=== PATIENT | male | born 1940 | race Caucasian/White ===

== ENCOUNTER 2016-04-29 07:43 | Outpatient (CLI) | payer MEDICARE, OTHER | END 2016-04-29 07:44 | disposition home or self-care (01) | DX: Z00.00 Encounter for general adult medical examination without abnormal findings (principal); E78.5 Hyperlipidemia, unspecified; Z12.5 Encounter for screening for malignant neoplasm of prostate; I10 Essential (primary) hypertension | CPT/HCPCS: 36415; 80053; 80061; 81001; 85025; G0103 ==

== ENCOUNTER 2016-05-07 16:02 | Outpatient (CLI) | payer MEDICARE, OTHER | END 2016-05-07 16:03 | disposition home or self-care (01) | DX: D64.9 Anemia, unspecified (principal) ==

== ENCOUNTER 2017-04-09 07:37 | Outpatient (CLI) | payer MEDICARE, OTHER ==
[2017-04-09 19:27] LABS: ALBUMIN/GLOBULIN RATIO 1.2 (1.0-2.2); BILIRUBIN,TOTAL 0.7 mg/dL (0.2-1.0); BUN - BLOOD UREA NITROGEN 17 mg/dL (6-20); CALCIUM 8.9 mg/dL (8.5-10.3); CARBON DIOXIDE - CO2 28 mmol/L (21-32); CHLORIDE 105 mmol/L (101-111); CHOL/HDL RATIO 3.2 (<5.0); CHOLESTEROL 232 mg/dL; CREATININE 0.9 mg/dL (0.6-1.2); GFR - MDRD 82 (>89); GLUCOSE 88 mg/dL (70-100); HDL CHOLESTEROL 73 mg/dL; POTASSIUM 4.1 mmol/L (3.5-5.0); SODIUM 138 mmol/L (135-145); TOTAL PROTEIN 6.9 g/dL (6.7-8.2); TRIGLYCERIDES 57 mg/dL; VLDL CHOLESTEROL 11 mg/dL
[2017-04-09 19:47] LABS: BASOPHILS # (AUTO) 0.1 10^3/uL (0.0-0.1); EOSINOPHILS # (AUTO) 0.3 10^3/uL (0.0-0.7); EOSINOPHILS % (AUTO) 5.7 %; HCT - HEMATOCRIT 39.8 % (42.0-52.0); HGB - HEMOGLOBIN 13.4 g/dL (14.0-18.0); LYMPHOCYTES # (AUTO) 1.9 10^3/uL (1.5-3.5); LYMPHOCYTES % (AUTO) 36.9 %; MEAN CORPUSCULAR HEMOGLOBIN 31.7 pg (27.0-31.0); MEAN CORPUSCULAR HGB CONC 33.7 g/dL (32.0-36.0); MEAN CORPUSCULAR VOLUME 94.2 fL (80.0-94.0); MEAN PLATELET VOLUME 8.8 fL (7.4-11.4); MONOCYTES # (AUTO) 0.5 10^3/uL (0.0-1.0); MONOCYTES % (AUTO) 9.5 %; NEUTROPHILS # (AUTO) 2.5 10^3/uL (1.5-6.6); NEUTROPHILS % (AUTO) 46.9 %; RED BLOOD COUNT 4.22 10^6/uL (4.70-6.10); RED CELL DISTRIBUTION WIDTH 13.1 % (12.0-15.0); UNCORRECTED WHITE BLOOD COUNT 5.3 x10^3/uL; WHITE BLOOD COUNT 5.3 x10^3/uL (4.8-10.8)
== END 2017-04-09 07:38 | disposition home or self-care (01) ==
LOC: LAB.F 07:37
PROVIDERS: ATTEND Family Medicine
DX: I10 Essential (primary) hypertension (principal); E78.5 Hyperlipidemia, unspecified; Z12.5 Encounter for screening for malignant neoplasm of prostate; D64.9 Anemia, unspecified
CPT/HCPCS: 36415; 80053; 80061; 85025; G0103; 84153

== ENCOUNTER 2017-04-25 08:08 | Outpatient (CLI) | payer MEDICARE, OTHER | END 2017-04-25 08:09 | disposition home or self-care (01) | LOC: DI 08:08 | PROVIDERS: ATTEND Family Medicine | DX: I35.0 Nonrheumatic aortic (valve) stenosis (principal); I51.9 Heart disease, unspecified; I51.7 Cardiomegaly | CPT/HCPCS: 93306 ==

== ENCOUNTER 2018-04-02 07:25 | Outpatient (CLI) | payer MEDICARE, OTHER ==
[2018-04-02 11:59] LABS: EOSINOPHILS # (AUTO) 0.4 10^3/uL (0.0-0.7); EOSINOPHILS % (AUTO) 7.4 %; HGB - HEMOGLOBIN 13.2 g/dL (14.0-18.0); LYMPHOCYTES # (AUTO) 1.7 10^3/uL (1.5-3.5); LYMPHOCYTES % (AUTO) 35.7 %; MEAN CORPUSCULAR HEMOGLOBIN 32.7 pg (27.0-31.0); MEAN CORPUSCULAR HGB CONC 34.9 g/dL (32.0-36.0); MEAN CORPUSCULAR VOLUME 93.5 fL (80.0-94.0); MEAN PLATELET VOLUME 8.8 fL (7.4-11.4); MONOCYTES # (AUTO) 0.5 10^3/uL (0.0-1.0); MONOCYTES % (AUTO) 9.5 %; NEUTROPHILS # (AUTO) 2.3 10^3/uL (1.5-6.6); NEUTROPHILS % (AUTO) 46.4 %; PLT - PLATELET COUNT 173 10^3/uL (130-450); RED BLOOD COUNT 4.03 10^6/uL (4.70-6.10); RED CELL DISTRIBUTION WIDTH 12.9 % (12.0-15.0); WHITE BLOOD COUNT 4.9 x10^3/uL (4.8-10.8)
[2018-04-02 12:22] LABS: ALBUMIN 3.8 g/dL (3.2-5.5); ALBUMIN/GLOBULIN RATIO 1.3 (1.0-2.2); ALKALINE PHOSPHATASE 48 IU/L (42-121); ALT ALANINE AMINOTRANSFERASE 20 IU/L (10-60); AST ASPARTATE AMINOTRANSFERASE 22 IU/L (10-42); BILIRUBIN,TOTAL 0.9 mg/dL (0.2-1.0); BUN - BLOOD UREA NITROGEN 17 mg/dL (6-20); CALCIUM 8.9 mg/dL (8.5-10.3); CARBON DIOXIDE - CO2 28 mmol/L (21-32); CHLORIDE 103 mmol/L (101-111); CHOL/HDL RATIO 3.1 (<5.0); CHOLESTEROL 223 mg/dL; CREATININE 0.9 mg/dL (0.6-1.2); GFR - MDRD 81 (>89); GLUCOSE 90 mg/dL (70-100); HDL CHOLESTEROL 71 mg/dL; LDL CHOLESTEROL,CALCULATED 143 mg/dL; SODIUM 137 mmol/L (135-145); TOTAL PROTEIN 6.8 g/dL (6.7-8.2); VLDL CHOLESTEROL 9 mg/dL
== END 2018-04-02 07:26 | disposition home or self-care (01) ==
LOC: LAB.F 07:25
PROVIDERS: ATTEND Registered Nurse
DX: N40.1 Benign prostatic hyperplasia with lower urinary tract symptoms (principal); I35.0 Nonrheumatic aortic (valve) stenosis; I10 Essential (primary) hypertension; E78.5 Hyperlipidemia, unspecified; Z12.5 Encounter for screening for malignant neoplasm of prostate; D64.9 Anemia, unspecified
CPT/HCPCS: 36415; 80053; 80061; 83721; 84153; 84443; 85025

== ENCOUNTER 2019-02-15 07:05 | Outpatient (CLI) | payer MEDICARE, OTHER ==
[2019-02-15 10:31] LABS: BASOPHILS # (AUTO) 0.1 10^3/uL (0.0-0.1); BASOPHILS % (AUTO) 0.9 %; EOSINOPHILS # (AUTO) 0.3 10^3/uL (0.0-0.7); EOSINOPHILS % (AUTO) 5.8 %; HGB - HEMOGLOBIN 13.5 g/dL (14.0-18.0); LYMPHOCYTES # (AUTO) 1.8 10^3/uL (1.5-3.5); LYMPHOCYTES % (AUTO) 32.5 %; MEAN CORPUSCULAR HEMOGLOBIN 32.1 pg (27.0-31.0); MEAN CORPUSCULAR HGB CONC 33.6 g/dL (32.0-36.0); MEAN CORPUSCULAR VOLUME 95.5 fL (80.0-94.0); MEAN PLATELET VOLUME 10.4 fL (7.4-11.4); MONOCYTES # (AUTO) 0.6 10^3/uL (0.0-1.0); NEUTROPHILS # (AUTO) 2.8 10^3/uL (1.5-6.6); NEUTROPHILS % (AUTO) 50.6 %; PLT - PLATELET COUNT 198 10^3/uL (130-450); RED BLOOD COUNT 4.21 10^6/uL (4.70-6.10); RED CELL DISTRIBUTION WIDTH 12.5 % (12.0-15.0); WHITE BLOOD COUNT 5.5 x10^3/uL (4.8-10.8)
[2019-02-15 10:42] LABS: ALBUMIN 3.7 g/dL (3.2-5.5); ALBUMIN/GLOBULIN RATIO 1.1 (1.0-2.2); ALKALINE PHOSPHATASE 47 IU/L (42-121); ALT ALANINE AMINOTRANSFERASE 20 IU/L (10-60); AST ASPARTATE AMINOTRANSFERASE 23 IU/L (10-42); BILIRUBIN,TOTAL 0.7 mg/dL (0.2-1.0); BUN - BLOOD UREA NITROGEN 20 mg/dL (6-20); CALCIUM 9.2 mg/dL (8.5-10.3); CARBON DIOXIDE - CO2 30 mmol/L (21-32); CHLORIDE 102 mmol/L (101-111); CHOL/HDL RATIO 3.5 (<5.0); CHOLESTEROL 232 mg/dL; CREATININE 0.9 mg/dL (0.6-1.2); GFR - MDRD 81 (>89); GLUCOSE 104 mg/dL (70-100); HDL CHOLESTEROL 66 mg/dL; LDL CHOLESTEROL,CALCULATED 153 mg/dL; LDL/HDL RATIO 2.3 (<3.6); SODIUM 139 mmol/L (135-145); VLDL CHOLESTEROL 13 mg/dL
[2019-02-15 10:43] LABS: HB2 TOTAL 14.1 g/dL; HEMOGLOBIN A1C 0.48 g/dL; HEMOGLOBIN A1C % 5.3 % (4.6-6.2)
== END 2019-02-15 07:06 | disposition home or self-care (01) ==
LOC: LAB.S 07:05
PROVIDERS: ATTEND Registered Nurse
DX: Z13.228 Encounter for screening for other metabolic disorders (principal); E78.5 Hyperlipidemia, unspecified; Z13.1 Encounter for screening for diabetes mellitus; Z13.29 Encounter for screening for other suspected endocrine disorder; D64.9 Anemia, unspecified
CPT/HCPCS: 36415; 80053; 80061; 83036; 83721; 84443; 85025

== ENCOUNTER 2020-09-18 07:52 | Outpatient (CLI) | payer MEDICARE, OTHER ==
[2020-09-18 15:05] LABS: BASOPHILS # (AUTO) 0.1 10^3/uL (0.0-0.1); BASOPHILS % (AUTO) 0.9 %; EOSINOPHILS # (AUTO) 0.3 10^3/uL (0.0-0.7); EOSINOPHILS % (AUTO) 5.3 %; HCT - HEMATOCRIT 38.9 % (42.0-52.0); HGB - HEMOGLOBIN 12.8 g/dL (14.0-18.0); LYMPHOCYTES # (AUTO) 1.9 10^3/uL (1.5-3.5); LYMPHOCYTES % (AUTO) 36.4 %; MEAN CORPUSCULAR HEMOGLOBIN 31.4 pg (27.0-31.0); MEAN CORPUSCULAR HGB CONC 32.9 g/dL (32.0-36.0); MEAN CORPUSCULAR VOLUME 95.3 fL (80.0-94.0); MEAN PLATELET VOLUME 10.7 fL (7.4-11.4); MONOCYTES # (AUTO) 0.5 10^3/uL (0.0-1.0); NEUTROPHILS # (AUTO) 2.6 10^3/uL (1.5-6.6); NEUTROPHILS % (AUTO) 48.2 %; PLT - PLATELET COUNT 192 10^3/uL (130-450); RED BLOOD COUNT 4.08 10^6/uL (4.70-6.10); RED CELL DISTRIBUTION WIDTH 12.9 % (12.0-15.0); WHITE BLOOD COUNT 5.3 x10^3/uL (4.8-10.8)
[2020-09-18 15:30] LABS: ALBUMIN 3.8 g/dL (3.2-5.5); ALBUMIN/GLOBULIN RATIO 1.3 (1.0-2.2); ALKALINE PHOSPHATASE 49 IU/L (42-121); ALT ALANINE AMINOTRANSFERASE 17 IU/L (10-60); AST ASPARTATE AMINOTRANSFERASE 20 IU/L (10-42); BUN - BLOOD UREA NITROGEN 19 mg/dL (6-20); CALCIUM 9.1 mg/dL (8.5-10.3); CARBON DIOXIDE - CO2 27 mmol/L (21-32); CHLORIDE 103 mmol/L (101-111); CHOL/HDL RATIO 3.7 (<5.0); CHOLESTEROL 230 mg/dL; CREATININE 1.1 mg/dL (0.6-1.2); GFR - MDRD 64 (>89); GLUCOSE 96 mg/dL (70-100); HDL CHOLESTEROL 62 mg/dL; LDL CHOLESTEROL,CALCULATED 155 mg/dL; LDL/HDL RATIO 2.5 (<3.6); POTASSIUM 3.9 mmol/L (3.5-5.0); SODIUM 138 mmol/L (135-145); TOTAL PROTEIN 6.7 g/dL (6.7-8.2); TRIGLYCERIDES 66 mg/dL; VLDL CHOLESTEROL 13 mg/dL
[2020-09-18 15:35] LABS: THYROID STIMULATING HORMONE 1.07 uIU/mL (0.34-5.60)
== END 2020-09-18 07:53 | disposition home or self-care (01) ==
LOC: LAB.S 07:52
PROVIDERS: ATTEND Registered Nurse
DX: I35.0 Nonrheumatic aortic (valve) stenosis (principal); I10 Essential (primary) hypertension; E78.5 Hyperlipidemia, unspecified; D64.9 Anemia, unspecified; G47.00 Insomnia, unspecified
CPT/HCPCS: 36415; 80053; 80061; 83721; 84443; 85025

== ENCOUNTER 2021-03-28 07:32 | Outpatient (CLI) | payer MEDICARE, OTHER ==
[2021-03-28 14:34] LABS: BASOPHILS # (AUTO) 0.1 10^3/uL (0.0-0.1); BASOPHILS % (AUTO) 1.2 %; EOSINOPHILS # (AUTO) 0.5 10^3/uL (0.0-0.7); EOSINOPHILS % (AUTO) 8.2 %; HCT - HEMATOCRIT 39.6 % (42.0-52.0); HGB - HEMOGLOBIN 13.2 g/dL (14.0-18.0); LYMPHOCYTES % (AUTO) 34.7 %; MEAN CORPUSCULAR HEMOGLOBIN 31.9 pg (27.0-31.0); MEAN CORPUSCULAR HGB CONC 33.3 g/dL (32.0-36.0); MEAN CORPUSCULAR VOLUME 95.7 fL (80.0-94.0); MEAN PLATELET VOLUME 10.9 fL (7.4-11.4); MONOCYTES # (AUTO) 0.5 10^3/uL (0.0-1.0); MONOCYTES % (AUTO) 9.1 %; NEUTROPHILS # (AUTO) 2.7 10^3/uL (1.5-6.6); NEUTROPHILS % (AUTO) 46.6 %; PLT - PLATELET COUNT 212 10^3/uL (130-450); RED BLOOD COUNT 4.14 10^6/uL (4.70-6.10); RED CELL DISTRIBUTION WIDTH 12.9 % (12.0-15.0); WHITE BLOOD COUNT 5.7 x10^3/uL (4.8-10.8)
[2021-03-28 15:35] LABS: ALBUMIN 3.6 g/dL (3.2-5.5); ALBUMIN/GLOBULIN RATIO 1.2 (1.0-2.2); ALKALINE PHOSPHATASE 46 IU/L (42-121); ALT ALANINE AMINOTRANSFERASE 17 IU/L (10-60); AST ASPARTATE AMINOTRANSFERASE 20 IU/L (10-42); BILIRUBIN,TOTAL 0.8 mg/dL (0.2-1.0); BUN - BLOOD UREA NITROGEN 14 mg/dL (6-20); CALCIUM 9.2 mg/dL (8.5-10.3); CARBON DIOXIDE - CO2 27 mmol/L (21-32); CHLORIDE 105 mmol/L (101-111); CHOL/HDL RATIO 3.4 (<5.0); CHOLESTEROL 220 mg/dL; CREATININE 1.1 mg/dL (0.6-1.2); GFR - MDRD 64 (>89); GLUCOSE 96 mg/dL (70-100); HDL CHOLESTEROL 65 mg/dL; LDL CHOLESTEROL,CALCULATED 142 mg/dL; LDL/HDL RATIO 2.2 (<3.6); POTASSIUM 3.9 mmol/L (3.5-5.0); SODIUM 141 mmol/L (135-145); TOTAL PROTEIN 6.7 g/dL (6.7-8.2); TRIGLYCERIDES 65 mg/dL; VLDL CHOLESTEROL 13 mg/dL
== END 2021-03-28 07:33 | disposition home or self-care (01) ==
LOC: LAB.S 07:32
PROVIDERS: ATTEND Internal Medicine
DX: I10 Essential (primary) hypertension (principal); E78.5 Hyperlipidemia, unspecified; Z12.5 Encounter for screening for malignant neoplasm of prostate
CPT/HCPCS: 36415; 80053; 80061; 85025; G0103; 83721; 84153

== ENCOUNTER 2022-03-24 07:41 | Outpatient (CLI) | payer MEDICARE, OTHER ==
[2022-03-24 15:06] LABS: BASOPHILS # (AUTO) 0.1 10^3/uL (0.0-0.1); BASOPHILS % (AUTO) 1.2 %; EOSINOPHILS # (AUTO) 0.6 10^3/uL (0.0-0.7); EOSINOPHILS % (AUTO) 10.1 %; HCT - HEMATOCRIT 39.8 % (42.0-52.0); HGB - HEMOGLOBIN 13.1 g/dL (14.0-18.0); LYMPHOCYTES # (AUTO) 1.9 10^3/uL (1.5-3.5); MEAN CORPUSCULAR HEMOGLOBIN 32.1 pg (27.0-31.0); MEAN CORPUSCULAR HGB CONC 32.9 g/dL (32.0-36.0); MEAN CORPUSCULAR VOLUME 97.5 fL (80.0-94.0); MEAN PLATELET VOLUME 10.7 fL (7.4-11.4); MONOCYTES # (AUTO) 0.6 10^3/uL (0.0-1.0); MONOCYTES % (AUTO) 9.5 %; NEUTROPHILS # (AUTO) 2.7 10^3/uL (1.5-6.6); PLT - PLATELET COUNT 206 10^3/uL (130-450); RED BLOOD COUNT 4.08 10^6/uL (4.70-6.10); RED CELL DISTRIBUTION WIDTH 13.1 % (12.0-15.0); WHITE BLOOD COUNT 5.9 x10^3/uL (4.8-10.8)
[2022-03-24 15:29] LABS: ALBUMIN 3.6 g/dL (3.2-5.5); ALBUMIN/GLOBULIN RATIO 1.4 (1.0-2.2); ALKALINE PHOSPHATASE 47 IU/L (42-121); ALT ALANINE AMINOTRANSFERASE 17 IU/L (10-60); AST ASPARTATE AMINOTRANSFERASE 19 IU/L (10-42); BILIRUBIN,TOTAL 0.6 mg/dL (0.2-1.0); BUN - BLOOD UREA NITROGEN 15 mg/dL (6-20); CALCIUM 8.9 mg/dL (8.5-10.3); CARBON DIOXIDE - CO2 27 mmol/L (21-32); CHLORIDE 103 mmol/L (101-111); CHOL/HDL RATIO 2.9 (<5.0); CHOLESTEROL 200 mg/dL; GFR - MDRD 71 (>89); GLUCOSE 94 mg/dL (70-100); HDL CHOLESTEROL 68 mg/dL; LDL CHOLESTEROL,CALCULATED 119 mg/dL; LDL/HDL RATIO 1.8 (<3.6); POTASSIUM 4.1 mmol/L (3.5-5.0); SODIUM 137 mmol/L (135-145); TOTAL PROTEIN 6.1 g/dL (6.7-8.2); TRIGLYCERIDES 64 mg/dL; VLDL CHOLESTEROL 13 mg/dL
== END 2022-03-24 07:42 | disposition home or self-care (01) ==
LOC: LAB.S 07:41
PROVIDERS: ATTEND Registered Nurse
DX: E78.5 Hyperlipidemia, unspecified (principal); Z79.899 Other long term (current) drug therapy
CPT/HCPCS: 36415; 80053; 80061; 83721; 85025

== ENCOUNTER 2022-07-10 16:01 | Outpatient (CLI) | payer MEDICARE, OTHER ==
--- NOTE | 2022-07-10 20:52 | XRAY Report ---
PROCEDURE: Chest 2 View X-Ray INDICATIONS: SHORTNESS OF BREATH TECHNIQUE: 2 views of the chest were acquired. COMPARISON: None. FINDINGS: Surgical changes and devices: None. Lungs and pleura: No pleural effusions or pneumothorax. Patchy and irregular opacities are present w ithin both lungs. Pulmonary vasculature appears prominent. Mediastinum: Cardiac silhouette is at the upper limits of normal in size. Bones and chest wall: No suspicious bony abnormalities. Soft tissues appear unremarkable. IMPRESSION: 1. Prominence of the cardiac silhouette and pulmonary vasculature could indicate an element of fluid overload/CHF. 2. Patchy and irregular opacities are present within both lungs. These are nonspecific, could represe nt foci of airspace disease/consolidation, and/or pleural plaquing. Reviewed by: Shlomo Avila MD on 07/10/2022 8:51 PM PDT Approved by: Shlomo Avila MD on 07/10/2022 8:51 PM PDT Station ID: [id number]
== END 2022-07-10 16:02 | disposition home or self-care (01) ==
LOC: DI.S 16:01
PROVIDERS: ATTEND Registered Nurse
DX: R06.02 Shortness of breath (principal)

== ENCOUNTER 2022-07-12 09:08 | Inpatient (IN) | payer MEDICARE, OTHER ==
--- OUTSIDE RECORDS SUMMARY | 2022-07-12 09:31 | EXTERNAL MEDICAL SUMMARY RPT | Continuity of Care Document ---
:1940 Author Organization [facility] Address [address] [place] [address] Phone Care Team Providers Name Role Phone Unavailable Unavailable Unavailable Janina Middleton Unavailable Unavailable Allergies No information. Encounters No information. Functional Status No information. Immunizations No information. Medications date description facility 2022-07-11 00:00 furosemide All 2022-07-12 00:00 furosemide All 2022-07-10 00:00 MULTIPLE VITAMIN All 2022-07-11 00:00 MULTIPLE VITAMIN All 2022-07-12 00:00 MULTIPLE VITAMIN All 2022-07-10 00:00 OMEGA-3 FATTY ACIDS All 2022-07-11 00:00 OMEGA-3 FATTY ACIDS All 2022-07-12 00:00 OMEGA-3 FATTY ACIDS All 2022-07-11 00:00 hrlrb-6-yht-qan-ddm-tycxcrkqsx All 2022-07-12 00:00 mlbif-6-lhg-vvq-myo-cxkqfkyoxq All 2022-07-10 00:00 MULTIPLE VITAMIN All 2022-07-11 00:00 MULTIPLE VITAMIN All 2022-07-12 00:00 MULTIPLE VITAMIN All 2022-07-10 00:00 zwjbd-8-liq-ewm-ezi-kfmckkbxjy All 2022-07-11 00:00 wfvnb-8-icl-dsi-flr-fqbyxjgmjc All 2022-07-12 00:00 jdweh-5-pzz-red-tyy-xngziefpeb All 2022-07-11 00:00 furosemide All 2022-07-12 00:00 furosemide All 2022-07-10 00:00 zolpidem All 2022-07-11 00:00 zolpidem All 2022-07-12 00:00 zolpidem All 2022-07-11 00:00 furosemide All 2022-07-12 00:00 furosemide All 2022-07-10 00:00 albuterol sulfate All 2022-07-10 00:00 albuterol sulfate All 2022-07-10 00:00 zolpidem All 2022-07-11 00:00 zolpidem All 2022-07-12 00:00 zolpidem All 2022-07-10 00:00 zolpidem All 2022-07-11 00:00 zolpidem All 2022-07-12 00:00 zolpidem All 2022-07-10 00:00 albuterol sulfate All 2022-07-10 00:00 albuterol sulfate All 2022-07-10 00:00 OMEGA-3 FATTY ACIDS All 2022-07-11 00:00 OMEGA-3 FATTY ACIDS All 2022-07-12 00:00 OMEGA-3 FATTY ACIDS All 2022-07-10 00:00 MULTIPLE VITAMIN All 2022-07-11 00:00 MULTIPLE VITAMIN All 2022-07-12 00:00 MULTIPLE VITAMIN All 2022-07-10 00:00 OMEGA-3 FATTY ACIDS All 2022-07-11 00:00 OMEGA-3 FATTY ACIDS All 2022-07-12 00:00 OMEGA-3 FATTY ACIDS All 2022-07-10 00:00 zolpidem All 2022-07-11 00:00 zolpidem All 2022-07-12 00:00 zolpidem All 2022-07-10 00:00 jvwvr-2-vmo-slk-xtl-cvmympjwpf All 2022-07-11 00:00 ifarq-1-lqx-jih-kmm-djwlugeslu All 2022-07-12 00:00 xzcfy-0-hxq-veh-bju-vjjmmetfuh All 2022-07-11 00:00 furosemide All 2022-07-12 00:00 furosemide All 2022-07-10 00:00 mardg-3-csg-smh-jya-upemljcncq All 2022-07-11 00:00 gangh-4-tjl-ejw-ext-quxyrtmzhq All 2022-07-12 00:00 xlbcw-2-hgc-hwi-fxc-tretesltoj All 2022-07-10 00:00 amoxicillin-pot clavulanate All Problems date description facility 2022-07-10 00:00 Dyspnea All 2022-07-10 00:00 Shortness of breath All 2022-07-11 00:00 Electrocardiogram abnormal All 2022-07-11 00:00 Nonspecific abnormal electrocardiogram [ECG] [EKG] All 2022-07-11 00:00 Abnormal electrocardiogram [ECG] [EKG] All Procedures date description facility 2022-07-10 00:00 Visit Code Hold All 2022-07-10 00:00 EKG Office Complete All Results/Labs No information. Social History date description facility 2022-07-10 00:00 Former smoker All Vital Signs date measurement value units 2022-07-10 00:00 BMI 24.72 kg/m2 2022-07-10 00:00 BP_diastolic 60 mmHg 2022-07-10 00:00 BP_systolic 100 mmHg 2022-07-10 00:00 heart_rate 88 /min 2022-07-10 00:00 height_metric 172.72 cm 2022-07-10 00:00 height_standard 68 in 2022-07-10 00:00 respiration_rate 18 /min 2022-07-10 00:00 temperature_metric 36.11 C 2022-07-10 00:00 temperature_standard 97 F 2022-07-10 00:00 weight_metric 73.48 kg 2022-07-10 00:00 weight_standard 162 lb
--- NOTE | 2022-07-12 09:40 | ED Physician Documentation ---
History of Present Illness - Stated complaint Stated Complaint: SOA - Chief complaint Chief Complaint: Cardiac - History obtained from History obtained from: Patient - History of Present Illness Timing: Other (6 months) Pain level max: 0 Pain level now: 0 - Additonal information Additional information: 82-year-old male presents the emergency department with increasing shortness of breath since last January. He states has been ongoing for about 6 months and progressively worsening. Has a mild cough. He states that his primary care provider started him on amoxicillin for possible pneumonia recently. No fevers. No chills. He was being followed by a driver guide in [place] but has not seen them for about 10 years. He did have an echocardiogram here in 2017 that showed mild aortic stenosis at that time, has not had a repeat echocardiogram since that time. Denies any history of kidney or liver issues. He quit smoking about 30 years ago. He rarely drinks. He has noticed that he has gained about 5 to 6 pounds over the past few months. He states he has also noticed some swelling in his bilateral lower extremities. Does not use oxygen at home. Does not have any history of lung issues and has not used an inhaler before. Patient states that the shortness of breath has continuously worsened and is now significantly short of breath with any movement or exertion. Review of Systems Constitutional: denies: Fever, Chills Nose: denies: Rhinorrhea / runny nose, Congestion Respiratory: reports: Dyspnea, Cough, Wheezing GI: denies: Abdominal Pain, Nausea, Vomiting, Diarrhea PD PAST MEDICAL HISTORY - Past Medical History Past Medical History: Yes Cardiovascular: Hypertension, Valve disorder (Aortic stenosis) Other Past Medical History: BPH - Present Medications Home Medications: Ambulatory Orders Medication Instructions Recorded Confirmed Albuterol Sulf [Ventolin Hfa 2 puffs INH Q4HR PRN 07/12/22 07/12/22 Inhaler] Benazepril HCl [Lotensin] 10 mg PO DAILY 07/12/22 07/12/22 Doxazosin [Cardura] 4 mg PO QPM 07/12/22 07/12/22 Finasteride [Proscar] 5 mg PO DAILY 07/12/22 07/12/22 Multivit-Min/FA/Lycopen/Lutein 1 each PO DAILY 07/12/22 07/12/22 [Centravites 50 Plus Tablet] Zolpidem [Ambien] 5 mg PO HS PRN 07/12/22 07/12/22 amLODIPine [Norvasc] 5 mg PO DAILY 07/12/22 07/12/22 - Allergies Allergies/Adverse Reactions: Allergies Allergy/AdvReac Type Severity Reaction Status Date / Time No Known Drug Allergies Allergy Verified 07/12/22 09:15 - Living Situation Living Situation: reports: With family Living Arrangement: reports: At home - Social History Does the pt have substance abuse?: No - Family History Family history: reports: Non contributory PD ED PE NORMAL - Vitals Vital signs reviewed: Yes - General General: Alert and oriented X 3, No acute distress, Well developed/nourished - HEENT HEENT: PERRL, Moist mucous membranes - Neck Neck: Supple, no meningeal sign - Cardiac Cardiac: RRR, Strong equal pulses, Other (Distant heart sounds, 3 out of 6 harsh systolic murmur) - Respiratory Respiratory: No respiratory distress, Other (Mild rhonchi bilaterally) - Abdomen Abdomen: Soft, Non tender, Non distended - Derm Derm: Warm and dry, No rash - Extremities Extremities: Other (1+ bilateral lower extremity pitting edema) - Neuro Neuro: Alert and oriented X 3 - Psych Psych: Normal mood, Normal affect Results - Vitals Vitals: Vital Signs - 24 hr 07/12/22 07/12/22 07/12/22 09:15 09:53 10:23 Temperature 37.0 C Heart Rate 95 92 89 Respiratory 25 H 24 22 Rate Blood Pressure 97/52 L 96/61 96/61 O2 Saturation 96 94 95 07/12/22 07/12/22 07/12/22 11:00 11:30 12:00 Temperature Heart Rate 88 86 92 Respiratory 20 23 23 Rate Blood Pressure 97/57 L 101/59 L 99/61 O2 Saturation 98 92 96 Oxygen O2 Source Room air - EKG (time done) 0919 EKG releavant findings:: EKG personally interpreted by author of this note. Relevant findings are: Rate: Rate (enter#) (91) Rhythm: NSR Belk: Normal Intervals: 1st degree AVB QRS: Normal, LVH Ischemia: ST elevation c/w repol - Labs Labs: Laboratory Tests 07/12/22 07/12/22 07/12/22 09:35 09:35 09:35 WBC 7.8 RBC 3.84 L Hgb 12.3 L Hct 36.3 L MCV 94.5 H MCH 32.0 H MCHC 33.9 RDW 12.6 Plt Count 179 MPV 10.2 Neut # (Auto) 6.0 Lymph # (Auto) 0.9 L Stanly # (Auto) 0.6 Eos # (Auto) 0.1 Baso # (Auto) 0.1 Absolute Nucleated RBC 0.00 Nucleated RBC % 0.0 Sodium 125 L Potassium 4.1 Chloride 94 L Carbon Dioxide 23 Anion Gap 8.0 BUN 18 Creatinine 0.9 Estimated GFR (MDRD) 81 L Glucose 161 H Calcium 8.6 Total Bilirubin 1.1 H AST 33 ALT 19 Alkaline Phosphatase 57 Troponin I High Sens 107.8 H* B-Natriuretic Peptide Total Protein 6.8 Albumin 3.7 Globulin 3.1 Albumin/Globulin Ratio 1.2 Lipase 44 Nasal Adenovirus (PCR) Nasal B. parapertussis DNA (PCR) Nasal Coronavir 229E PCR Nasal Coronavir HKU1 PCR Nasal Coronavir NL63 PCR Nasal Coronavir OC43 PCR Nasal Enterovir/Rhinovir PCR Nasal Influenza B PCR Nasal Influenza A PCR Nasal Parainfluen 1 PCR Nasal Parainfluen 2 PCR Nasal Parainfluen 3 PCR Nasal Parainfluen 4 PCR Nasal RSV (PCR) Nasal B.pertussis DNA PCR Nasal C.pneumoniae (PCR) You Human Metapneumo PCR Nasal M.pneumoniae (PCR) Nasal SARS-CoV-2 (PCR) 07/12/22 07/12/22 07/12/22 09:35 09:35 11:40 WBC RBC Hgb Hct MCV MCH MCHC RDW Plt Count MPV Neut # (Auto) Lymph # (Auto) Stanly # (Auto) Eos # (Auto) Baso # (Auto) Absolute Nucleated RBC Nucleated RBC % Sodium Potassium Chloride Carbon Dioxide Anion Gap BUN Creatinine Estimated GFR (MDRD) Glucose Calcium Total Bilirubin AST ALT Alkaline Phosphatase Troponin I High Sens 110.3 H* B-Natriuretic Peptide 1922 H Total Protein Albumin Globulin Albumin/Globulin Ratio Lipase Nasal Adenovirus (PCR) NOT DETECTED Nasal B. parapertussis DNA (PCR) NOT DETECTED Nasal Coronavir 229E PCR NOT DETECTED Nasal Coronavir HKU1 PCR NOT DETECTED Nasal Coronavir NL63 PCR NOT DETECTED Nasal Coronavir OC43 PCR NOT DETECTED Nasal Enterovir/Rhinovir PCR NOT DETECTED Nasal Influenza B PCR NOT DETECTED Nasal Influenza A PCR NOT DETECTED Nasal Parainfluen 1 PCR NOT DETECTED Nasal Parainfluen 2 PCR NOT DETECTED Nasal Parainfluen 3 PCR NOT DETECTED Nasal Parainfluen 4 PCR NOT DETECTED Nasal RSV (PCR) NOT DETECTED Nasal B.pertussis DNA PCR NOT DETECTED Nasal C.pneumoniae (PCR) NOT DETECTED You Human Metapneumo PCR NOT DETECTED Nasal M.pneumoniae (PCR) NOT DETECTED Nasal SARS-CoV-2 (PCR) NOT DETECTED - Rads (name of study) cxr Relevant Findings:: Final report received, See rad report PD Medical Decision Making - ED course Complexity details: reviewed results, re-evaluated patient, considered differential, d/w patient, d/w family, d/w technical assistance consultant ED course: 82-year-old male with ongoing shortness of breath for the past 6 months, weight gain as well. His CBC does not show any significant abnormalities other than a mild anemia. His chemistry is significant for a sodium of 125, chloride of 94. His high-sensitivity troponin is minimally elevated at 107.8. Repeat is 110. His BNP is 1922. The elevated high sensitive troponin is likely secondary to the heart failure rather than cardiac ischemia secondary to ACS. He was given a 50 mL bolus of 3% saline. He was also given Lasix for the pulmonary edema and heart failure. He is quite dyspneic with any movement. Not hypoxic, but unable to ambulate even across the room without stopping. He becomes short of breath just trying to get out of bed. Therefore we will place the patient observation for further care. Discussed the case with Dr. Esposito, hospitalist who accepts This document was made in part using voice recognition software. While efforts are made to proofread this document, sound alike and grammatical errors may occur. Increased multifocal airspace opacities throughout the bilateral lungs is concerning for atypical infectious etiology with pleural plaques not excluded. Prominent vascularity suggestive of pulmonary edema. Departure - Departure Disposition: ED Place in Observation Clinical Impression: Hyponatremia CHF (congestive heart failure) Qualifiers: Heart failure type: unspecified Heart failure chronicity: unspecified Qualified Code(s): I50.9 - Heart failure, unspecified Pulmonary edema Qualifiers: Chronicity: acute Qualified Code(s): J81.0 - Acute pulmonary edema Aortic stenosis Qualifiers: Cardiac valve disease etiology: etiology unspecified Qualified Code(s): I35.0 - Nonrheumatic aortic (valve) stenosis Condition: Stable Discharge Date/Time: 07/12/22 14:20
[2022-07-12 09:44] LABS: BASOPHILS # (AUTO) 0.1 10^3/uL (0.0-0.1); BASOPHILS % (AUTO) 0.6 %; EOSINOPHILS # (AUTO) 0.1 10^3/uL (0.0-0.7); EOSINOPHILS % (AUTO) 1.7 %; HCT - HEMATOCRIT 36.3 % (42.0-52.0); HGB - HEMOGLOBIN 12.3 g/dL (14.0-18.0); LYMPHOCYTES # (AUTO) 0.9 10^3/uL (1.5-3.5); MEAN CORPUSCULAR HGB CONC 33.9 g/dL (32.0-36.0); MEAN CORPUSCULAR VOLUME 94.5 fL (80.0-94.0); MEAN PLATELET VOLUME 10.2 fL (7.4-11.4); MONOCYTES # (AUTO) 0.6 10^3/uL (0.0-1.0); NEUTROPHILS % (AUTO) 77.6 %; PLT - PLATELET COUNT 179 10^3/uL (130-450); RED BLOOD COUNT 3.84 10^6/uL (4.70-6.10); RED CELL DISTRIBUTION WIDTH 12.6 % (12.0-15.0); WHITE BLOOD COUNT 7.8 x10^3/uL (4.8-10.8)
[2022-07-12 09:57] LABS: ALBUMIN 3.7 g/dL (3.2-5.5); ALBUMIN/GLOBULIN RATIO 1.2 (1.0-2.2); BILIRUBIN,TOTAL 1.1 mg/dL (0.2-1.0); CALCIUM 8.6 mg/dL (8.5-10.3); CREATININE 0.9 mg/dL (0.6-1.2); POTASSIUM 4.1 mmol/L (3.5-5.0); TOTAL PROTEIN 6.8 g/dL (6.7-8.2)
[2022-07-12] MEDS ORDERED: SODIUM CHLORIDE 3% HYPERTONIC 500 ML IV STA (10:17)
[2022-07-12] MEDS ORDERED: FUROSEMIDE 20 MG/2 ML VIAL IVP STA (10:17)
[2022-07-12] MEDS ORDERED: SODIUM CHLORIDE 3% HYPERTONIC 50 ML IV STA (10:22)
--- NOTE | 2022-07-12 10:24 | XRAY Report ---
PROCEDURE: Chest 1 View X-Ray INDICATIONS: Chest Pain TECHNIQUE: One view of the chest was acquired. COMPARISON: July 10, 2022 FINDINGS: Surgical changes and devices: None. Lungs and pleura: Lungs are hyperexpanded with flattening of the diaphragms. There is multifocal air space opacities overlying the bilateral lungs, slightly increased from comparison which may be exagge rated by lower lung volumes. Prominent vascularity. Mediastinum: Mediastinal contours appear normal. Heart size is normal. Bones and chest wall: No suspicious bony lesions. Overlying soft tissues appear unremarkable. IMPRESSION: Increased multifocal airspace opacities throughout the bilateral lungs is concerning for atypical inf ectious etiology with pleural plaques not excluded. Prominent vascularity suggestive of pulmonary edema. Reviewed by: Wilfredo Buckley MD on 07/12/2022 9:22 AM VERÓNICA Approved by: Wilfredo Buckley MD on 07/12/2022 9:22 AM VERÓNICA Station ID: [id number]
[2022-07-12 10:31] LABS: B. PARAPERTUSSIS- RESP PCR PAN NOT DETECTED; B. PERTUSSIS- RESP PCR PANEL NOT DETECTED; C. PNEUMONIAE- RESP PCR PANEL NOT DETECTED; CORONAVIRUS 229E-RESP PCR NOT DETECTED; CORONAVIRUS HKU1-RESP PCR NOT DETECTED; CORONAVIRUS NL63-RESP PCR NOT DETECTED; CORONAVIRUS OC43-RESP PCR NOT DETECTED; HUMAN METAPNEUMOVIRUS NOT DETECTED; INFLUENZA A- RESP PCR PANEL NOT DETECTED; INFLUENZA B - RESP PCR PANEL NOT DETECTED; M. PNEUMONIAE- RESP PCR PANEL NOT DETECTED; PARAINFLUENZA VIRUS 1 NOT DETECTED; PARAINFLUENZA VIRUS 2 NOT DETECTED; PARAINFLUENZA VIRUS 3 NOT DETECTED; PARAINFLUENZA VIRUS 4 NOT DETECTED; RHINOVIRUS/ENTEROVIRUS NOT DETECTED; RSV- RESP PCR PANEL NOT DETECTED; SARS-CoV-2 -RESP PCR PANEL NOT DETECTED
[2022-07-12] MEDS ORDERED: ACETAMINOPHEN 325 MG TABLET PO PRN (12:27)
[2022-07-12] MEDS ORDERED: oxyCODONE 5 MG TABLET PO PRN (12:27)
[2022-07-12] MEDS ORDERED: ONDANSETRON ODT 4 MG TABLET TL PRN (12:27)
[2022-07-12] MEDS ORDERED: ONDANSETRON 4 MG/2 ML VIAL IVP PRN (12:27)
--- NOTE | 2022-07-12 12:41 | HISTORY & PHYSICAL EXAMINATION ---
Chief Complaint - Chief Complaint Chief Complaint: lujan History of Present Illness - Admitted From Admitted From:: home - History Obtained From Records Reviewed: [employer] [facility] [employer] History obtained from: patient and Dr. Dillard Exam Limitations: none - History of Present Illness HPI Comment/Other: This is an 82-year-old man who has a history of aortic stenosis diagnosed in 2006 by his Treatment Technician in [place], [place] (Dr. Brown) and then confirmed by 2017 echo with his primary care provider Guero Brownlee, who presents with shortness of breath that is been gradually progressive and getting increasingly severe since January of last year. He noticed 2 things that month. One was that he could not make it up 1/4 mile walk that he does every day with the dog. It is about a 50 foot rise. He started not making it up to the top of the hill. And having to stop jail up the hill because of shortness of breath. The second thing he noticed was inability to completely mow his lawn in one fell swoop. He does not relatively quickly. And can finish it all at once. He was having to stop more and more. Then the rains came, and he did not have to mow his lawn so he has not mowed his lawn since January. He noticed that first before he noticed his inability to walk up the hill with a new dog. He has not had any syncope or near syncope. He was seen by his primary care provider, Adore Vallecillo, on July 10. He was seen in follow-up for his blood pressure that was also accompanied by shortness of breath on exertion during his daily walks. His blood pressure was getting lower. No ankle edema. Possibly a 5 pound weight gain. He used his dog's doxycycline 100 mg tablets for a couple of days. This was accompanied by a mildly productive cough in the compressed gases tester and an intermittent, mild cough that would continue as a day progressed. He noticed that he could not complete his dog walks anymore because he is too short of breath. Blood pressure in the office was on the low side at 100/60. He is an ex-smoker who smoked 1 pack/day for 20 years and quit in 1987. On examination in the clinic he had a regular rate and rhythm and no murmur. His left lower lobe had coarse crackles. EKG had an abnormal left bundle branch block but of unknown age. Chest x-ray was ordered and he was treated as pneumonia with antibiotics in the form of Augmentin and albuterol. On his own he cut his BP meds in half since his BP continued to be low. He returns today saying that he just cannot breathe. It got to the point where he could not get out of bed yesterday and today because of LUJAN. And he now reports another 5 pound weight gain so an overall 10 pound weight gain. He denies chest pain or anginal equivalent by my quetioning. Denies syncope or near syncope. Denies fever, chills, phlegm production. Denies any sore throat, URI symptoms, or eustation tube dysfunction. He is getting orthopnea now. In the ER temperature is 37. Blood pressure is 97/57. Respiratory rate 25. He is 96% on room air. He was alert and oriented. He had a harsh 3 out of 6 systolic murmur, mild rhonchi bilaterally and 1+ lower extremity edema. Chest x-ray was done July 10 and he had pulmonary vascular congestion and, patchy and irregular opacities present in both lungs. Nonspecific. Chest x-ray today shows increased multifocal opacities throughout the bilateral lungs concerning for atypical infectious etiology versus pulmonary edema. His sodium is now 125, where it was 137 in February 2022. Random glucose is 161. Creatinine is normal at 0.9. Total bili is 1.1. Troponin #1 was 107. 2 hours later troponin #2 was 110. BNP was 1922. After discussing the case with the emergency room provider, we both agree that this patient most likely has symptomatic aortic stenosis. His hypotension is pr oblematic and that leaves us little room to diurese him appropriately. He also has new hyponatremia at 125. While he is not symptomatic, this further restricts her ability to be aggressive with diuresis. As such he has received 50 mL of 3% normal saline in anticipation of diuresis. I will place the patient in observation status hoping that an overnight diuresis will stabilize him to return to home for an outpatient work-up with a air marshal. Currently, the ER nurse has not been able to input his current medications from the clinic. In looking at his clinic notes he is on Lasix 20 mg a day, albuterol metered-dose inhaler, amlodipine 5 mg daily, benazepril 10 mg daily, zolpidem 5 mg at night, finasteride 5 mg daily, doxazosin 4 mg daily fish oil tablets 2 tablets daily, blue-green allergy tablets 6 tablets a day, glucosamine 1 tablet twice a day, Maco red omega-3 Krill oil as directed, and Centrum Silver ultra men's once a day. History - Past Medical History Cardiovascular: reports: Hypertension, High cholesterol, Murmur, Valve disorder (Aortic stenosis) Respiratory: reports: None Neuro: reports: Other (sees [facility] and [facility] 12/2021) Endocrine/Autoimmune: reports: None GI: reports: None : reports: Benign prostate hypertrophy (with LUTS) HEENT: reports: Chronic vision loss Psych: reports: Other (insomnia, chronic, cuts 10 mg ambien in half. ) Musculoskeletal: reports: Chronic back pain (DDD) Other Past Medical History: anemia - Past Surgical History General: reports: Colonoscopy HEENT: reports: Cataracts (2016), Other (blepharoplasty 2016) - Family & Social History Living arrangement: At home Living Situation: With family Social History Notes: He is an ex-smoker who smoked a pack per day for approximately 20 years. He quit in 1987. Drinks alcohol about twice a week. Exercises regularly. He is a retired plant operations engineer. No history of recreational substance abuse. , lives with his in their own home. He has 3 children all live in [place] and they are healthy. - Substance History Use: Uses substance without health or social issues: NONE - POLST Patient has POLST: Yes POLST Status: PCP has only back Meds/Allgy - Home Medications Home Medications: Ambulatory Orders Medication Instructions Recorded Confirmed Albuterol Sulf [Ventolin Hfa 2 puffs INH Q4HR PRN 07/12/22 07/12/22 Inhaler] Benazepril HCl [Lotensin] 10 mg PO DAILY 07/12/22 07/12/22 Doxazosin [Cardura] 4 mg PO QPM 07/12/22 07/12/22 Finasteride [Proscar] 5 mg PO DAILY 07/12/22 07/12/22 Multivit-Min/FA/Lycopen/Lutein 1 each PO DAILY 07/12/22 07/12/22 [Centravites 50 Plus Tablet] Zolpidem [Ambien] 5 mg PO HS PRN 07/12/22 07/12/22 amLODIPine [Norvasc] 5 mg PO DAILY 07/12/22 07/12/22 - Allergies Allergies/Adverse Reactions: Allergies Allergy/AdvReac Type Severity Reaction Status Date / Time No Known Drug Allergies Allergy Verified 07/12/22 09:15 Review of Systems - Constitutional Constitutional: reports: Fatigue, Weight gain (10 lbs this month). denies: Fever, Chills, Malaise, Weakness, Poor appetite, Night sweats - Eyes Eyes: reports: Vision loss (with age). denies: Pain, Irritation, Amaurosis, Blurred vision - Ears, Nose & Throat Ears, Nose & Throat: reports: Hearing loss, Hearing aids. denies: Tinnitus, Dentures, Sore throat, Hoarseness - Cardiovascular Cariovascular: reports: Edema. denies: Irregular heart rate, Palpitations, Chest pain, Syncope, Exertional dyspnea, Decr. exercise tolerance - Respiratory Respiratory: reports: Cough, Orthopnea, SOB at rest (even talking causes him sob now), SOB with exertion. denies: Sputum production, Wheezing, Snoring, Hemoptysis - Gastrointestinal Gastrointestinal: denies: Abdominal pain, Abdominal distention, Constipation, Diarrhea, Black stools, Bloody stools, Nausea, Vomiting - Genitourinary Genitourinary: reports: Nocturia (once or twice a night). denies: Dysuria, Frequency, Urgency - Musculoskeletal Musculoskeletal: denies: Muscle pain, Back pain, Muscle aches, Stiffness - Integumentary Integumentary: denies: Rash, Pruritis, Lesions, Dryness - Neurological Neurological: denies: General weakness, Focal weakness, Headache, Memory problems, Pre-existing deficit - Psychiatric Psychiatric: denies: Depression, Anxiety, Suicidal, Delusions, Hallucinations, Homicidal - Endocrine Endocrine: denies: Polyuria, Polydypsia, Polyphagia, Intolerance to cold - Hematologic/Lymphatic Hematologic/Lymphatic: denies: Anemia, Bruising, Petechiae Prior Level of Functionality: independent with all activities of daily living, drives a car, does not use DME Exam - Vital Signs Reviewed Vital Signs: Yes Vital Signs: Vital Signs x48h Temp Pulse Resp BP Pulse Ox 07/12/22 12:30 86 23 99/60 96 07/12/22 12:00 92 23 99/61 96 07/12/22 11:30 86 23 101/59 L 92 07/12/22 11:00 88 20 97/57 L 98 07/12/22 10:23 89 22 96/61 95 07/12/22 09:53 92 24 96/61 94 07/12/22 09:15 37.0 C 95 25 H 97/52 L 96 - Physical Exam General Appearance: positive: Alert, Mild distress (Able to speak 3 fast sentences before he asked to take a gasp of air), Other (Slender elderly man who looks younger than stated age, appears tanned) Eyes Bilateral: positive: PERRL, EOMI ENT: positive: No signs of dehydration Neck: positive: No JVD. negative: Stiff neck Respiratory: positive: Rales ([facility] anteriorly, in axilla, and posterior.), Other (Mildly tachypneic with just speaking to me. Sitting upright in bed.) Cardiovascular: positive: Regular rate & rhythm, Systolic murmur Peripheral Pulses: positive: 1+ Abdomen: positive: Non-tender, No organomegaly, Nml bowel sounds, No distention Skin: positive: Warm, Dry Extremities: positive: Full ROM, Pedal edema Neurologic/Psychiatric: positive: Oriented x3, CN's nml (2-12), Motor nml Conclusion/Plan - Problem List (1) Acute systolic heart failure due to valvular disease Conclusion/Plan: Today is Thursday. We do not have an traffic engineering technician until next Thursday. If I can turn his shortness of breath around overnight, I do not plan on keeping him. From what I can see in his clinic chart, he already has a request for repeat echocardiogram put in. I will talk to the traffic engineering technician next week and see if we can move him to the head of the line. He will also need referral to cardiology once his CHF is stabilized to see if he is a candidate for repair depending on the severity of stenosis. In the meantime I will start with Lasix 20 mg IV push twice daily. He is already received his first dose in the ER (2) Hypotension Conclusion/Plan: He cut his blood pressure pills in half. Even with that his blood pressure still low. I do not suspect [place], dehydration, infection, GI bleed/anemia. Plan: No blood pressure medication at this time. Especially since I am going to be diuresing him. Qualifiers: Hypotension type: other hypotension type Qualified Code(s): I95.89 - Other hypotension (3) Elevated troponin level not due myocardial infarction Conclusion/Plan: Type II demand ischemia. He does have a left bundle branch block on EKG and as such his EKG would be uninterpretable for [place]. However he has been having shortness of breath and chest discomfort since January. The fact his troponin is not bumping up very much from the initial troponin indicates this most likely he is going to be having a flat response from his aortic stenosis causing stra in. Plan: Continue his daily aspirin Continue his statin Check troponin in 6 hours just to make sure (4) BPH loc w urin obs/LUTS Conclusion/Plan: I will be increasing his urinary frequency with diuresis. I will make sure Proscar and Flomax are ordered. (5) Hyponatremia Conclusion/Plan: From CHF. Received 3% hypertonic saline in the ER. Only 50 cc. I will repeat the BMP later this afternoon. - Lab Results Lab results reviewed: Yes Fish Bones: 07/12/22 09:35 07/12/22 15:55 - Diagnostic Imaging Results Diagnostic Imaging Results: positive: Final report reviewed Diagnostic Imaging Results Comments: Chest xray: Increased multifocal airspace opacities throughout the bilateral lungs concerning for atypical infectious etiology with pleural plaques not excluded. Prominent vascular suggestive of pulmonary edema. - EKG Results EKG Interpreted Independently: No Core Measures - Anticipated LOS I expect patient to be DC'd or transferred within 96 hours.: Yes - DVT/VTE - Prophylaxis VTE/DVT Prophylaxis med ordered at admit?: Yes
--- NOTE | 2022-07-12 13:17 | PHARMACY PROGRESS NOTE ---
- Best Possible Medication History Admit Date and Time: 07/12/22 1227 Processed by: Pharmacy Medication History completed: Yes Secondary Source(s): Physician records, Pharmacy records, Insurance records As the person ultimately responsible for medication therapy, providers are able to order a medication from an existing home medication list in [facility] via the "Reconcile Routine" prior to Confirmation of that medication by security support analyst. Such practice is discouraged except when the physician, in their clinical judgment, deems that a medical need exists for a medication without regard to previous use.
[2022-07-12] MEDS ORDERED: TAMSULOSIN 0.4 MG CAPSULE PO STA (13:36)
[2022-07-12 16:26] LABS: CALCIUM 8.3 mg/dL (8.5-10.3); CREATININE 0.9 mg/dL (0.6-1.2); POTASSIUM 4.1 mmol/L (3.5-5.0)
[2022-07-12] MEDS ORDERED: SODIUM CHLORIDE 0.9% 500 ML IV ONE (19:01)
[2022-07-12] MEDS: FUROSEMIDE 20 MG/2 ML VIAL IVP SCH (20:14)
--- NOTE | 2022-07-12 22:47 | XRAY Report ---
PROCEDURE: Chest 1 View X-Ray INDICATIONS: Shortness of breath TECHNIQUE: One view of the chest was acquired. COMPARISON: None. FINDINGS: Surgical changes and devices: None. Lungs and pleura: No pleural effusions or pneumothorax. Lungs are edematous to a moderately severe degree. Mediastinum: Mediastinal contours appear normal. Heart size is at the upper limits of normal in siz e. Bones and chest wall: No suspicious bony lesions. Overlying soft tissues appear unremarkable. IMPRESSION: Suspect cardiogenic pulmonary edema, acute onset, as cause of the alveolar prominence noted above. At ypical/viral pneumonia and inhalation injury also could produce this appearance. Reviewed by: Gallito Barcenas MD on 07/12/2022 10:46 PM PDT Approved by: Gallito Barcenas MD on 07/12/2022 10:46 PM PDT Station ID: [id number]
[2022-07-13] MEDS: ZOLPIDEM 5 MG TABLET PO PRN (00:27)
[2022-07-13] MEDS: SODIUM CHLORIDE FLUSH 0.9% 10 ML SYRINGE IVP SCH ×4 (00:27→17:00)
[2022-07-13 05:31] LABS: BASOPHILS % (AUTO) 0.6 %; EOSINOPHILS # (AUTO) 0.4 10^3/uL (0.0-0.7); EOSINOPHILS % (AUTO) 5.7 %; HCT - HEMATOCRIT 33.7 % (42.0-52.0); HGB - HEMOGLOBIN 11.4 g/dL (14.0-18.0); LYMPHOCYTES # (AUTO) 1.1 10^3/uL (1.5-3.5); LYMPHOCYTES % (AUTO) 15.9 %; MEAN CORPUSCULAR HEMOGLOBIN 31.8 pg (27.0-31.0); MEAN CORPUSCULAR HGB CONC 33.8 g/dL (32.0-36.0); MEAN CORPUSCULAR VOLUME 93.9 fL (80.0-94.0); MEAN PLATELET VOLUME 10.1 fL (7.4-11.4); MONOCYTES # (AUTO) 0.7 10^3/uL (0.0-1.0); NEUTROPHILS # (AUTO) 4.6 10^3/uL (1.5-6.6); NEUTROPHILS % (AUTO) 67.5 %; PLT - PLATELET COUNT 165 10^3/uL (130-450); RED BLOOD COUNT 3.59 10^6/uL (4.70-6.10); RED CELL DISTRIBUTION WIDTH 12.5 % (12.0-15.0); WHITE BLOOD COUNT 6.8 x10^3/uL (4.8-10.8)
[2022-07-13 05:37] LABS: CALCIUM 8.2 mg/dL (8.5-10.3); CREATININE 0.9 mg/dL (0.6-1.2); POTASSIUM 4.1 mmol/L (3.5-5.0)
[2022-07-13] MEDS: FUROSEMIDE 20 MG/2 ML VIAL IVP SCH ×2 (06:22→13:35)
[2022-07-13] MEDS: SODIUM CHLORIDE FLUSH 0.9% 10 ML SYRINGE IVP PRN (06:22)
[2022-07-13] MEDS: MULTIVITAMIN TABLET PO SCH (08:20)
[2022-07-13] MEDS: ENOXAPARIN 40 MG/0.4 ML SYRINGE SUBQ SCH (08:20)
--- NOTE | 2022-07-13 12:21 | PROVIDER PROGRESS NOTE ---
Subjective - Prog Note Date Prog Note Date: 07/13/22 Prog Note Time: 12:07 - Subjective Pt reports feeling: No change (Pt states he's "winded less often but still winded". When he sits up at the end of his bed he is able to cough out "a bunch of pale yellow fluid" described as a "light syrup". Additionally notes his brother reached out to him last night saying he has a 40yr history of a innocent Aortic murmur.) Current Medications - Current Medications Current Medications: Active Medications Generic Name Dose Route Start Last Admin Trade Name Freq PRN Reason Stop Dose Admin Acetaminophen 650 mg 07/12/22 12:27 Acetaminophen 325 Mg Tablet PO Q4HR PRN Pain 1 to 4, or Fever Enoxaparin Sodium 40 mg 07/13/22 09:00 07/13/22 08:20 Enoxaparin 40 Mg/0.4 Ml Syringe SUBQ 40 mg DAILY BRAIN Administration Furosemide 20 mg 07/12/22 19:00 07/13/22 06:22 Furosemide 20 Mg/2 Ml Vial IVP 20 mg BIDDIURETIC BRAIN Administration Multivitamins 1 tab 07/13/22 08:00 07/13/22 08:20 Multivitamin Tablet PO 1 tab DAILYWM BRAIN Administration Ondansetron HCl 4 mg 07/12/22 12:27 Ondansetron Odt 4 Mg Tablet TL Q6HR PRN Nausea / Vomiting Ondansetron HCl 4 mg 07/12/22 12:27 Ondansetron 4 Mg/2 Ml Vial IVP Q6HR PRN Nausea / Vomiting Oxycodone HCl 5 mg 07/12/22 12:27 Oxycodone 5 Mg Tablet PO Q4HR PRN Pain 5 to 7 Sodium Chloride 10 ml 07/12/22 12:27 07/13/22 06:22 Sodium Chloride Flush 0.9% 10 Ml Syringe IVP 10 ml PRN PRN Administration NEEDED PER PROVIDER ORDERS Sodium Chloride 10 ml 07/12/22 17:00 07/13/22 08:20 Sodium Chloride Flush 0.9% 10 Ml Syringe IVP 10 ml 0100,0900,1700 BRAIN Administration Zolpidem Tartrate 5 mg 07/12/22 13:35 07/13/22 00:27 Zolpidem 5 Mg Tablet PO 5 mg HS PRN Administration Insomnia Albuterol Sulf [Ventolin Hfa Inhaler] 2 puffs INH Q4HR PRN 07/12/22 Benazepril HCl [Lotensin] 10 mg PO DAILY 07/12/22 Doxazosin [Cardura] 4 mg PO QPM 07/12/22 Finasteride [Proscar] 5 mg PO DAILY 07/12/22 Multivit-Min/FA/Lycopen/Lutein [Centravites 50 Plus Tablet] 1 each PO DAILY 07/12/22 Zolpidem [Ambien] 5 mg PO HS PRN 07/12/22 amLODIPine [Norvasc] 5 mg PO DAILY 07/12/22 Objective - Vital Signs/Intake & Output Reviewed Vital Signs: Yes Vital Signs: Vital Signs x48h Temp Pulse Pulse Resp BP Pulse Ox O2 Flow Rate 07/13/22 11:42 36.4 C L 84 21 90/40 L 95 1 07/13/22 08:59 94 1 07/13/22 08:52 36.7 C 95 18 101/65 97 2 07/13/22 05:00 36.8 C 93 8 L 95/50 L 96 2 Intake & Output: Intake & Output 07/10/22 07/11/22 07/12/22 07/13/22 23:59 23:59 23:59 23:59 Intake Total 350 240 Output Total 226 650 Balance 124 -410 - Objective General Appearance: positive: Mild distress (Every two-three sentences patient has to catch his breath.) Eyes Bilateral: positive: Normal inspection Neck: positive: No JVD Respiratory: positive: Chest non-tender Cardiovascular: positive: Regular rate & rhythm, Systolic murmur Peripheral Pulses: 1+ Posterior tibialis (R), 1+ Posterior tibialis (L), 2+ Radial (R), 2+ Radial (L) Abdomen: positive: Non-tender, Nml bowel sounds Skin: positive: Color nml, Warm Neurologic/Psychiatric: positive: Oriented x3, Mood/affect nml - Lab Results Fish Bones: 07/13/22 05:20 07/13/22 05:20 Other Labs: Lab Results x24hrs 07/13/22 07/13/22 07/13/22 Range/Units 05:20 05:20 05:20 WBC 6.8 (4.8-10.8) x10^3/uL RBC 3.59 L (4.70-6.10) 10^6/uL Hgb 11.4 L (14.0-18.0) g/dL Hct 33.7 L (42.0-52.0) % MCV 93.9 (80.0-94.0) fL MCH 31.8 H (27.0-31.0) pg MCHC 33.8 (32.0-36.0) g/dL RDW 12.5 (12.0-15.0) % Plt Count 165 (130-450) 10^3/uL MPV 10.1 (7.4-11.4) fL Neut # (Auto) 4.6 (1.5-6.6) 10^3/uL Lymph # (Auto) 1.1 L (1.5-3.5) 10^3/uL Monona # (Auto) 0.7 (0.0-1.0) 10^3/uL Eos # (Auto) 0.4 (0.0-0.7) 10^3/uL Baso # (Auto) 0.0 (0.0-0.1) 10^3/uL Absolute Nucleated RBC 0.00 x10^3/uL Nucleated RBC % 0.0 /100WBC Sodium 127 L (135-145) mmol/L Potassium 4.1 (3.5-5.0) mmol/L Chloride 96 L (101-111) mmol/L Carbon Dioxide 22 (21-32) mmol/L Anion Gap 9.0 (6-13) BUN 19 (6-20) mg/dL Creatinine 0.9 (0.6-1.2) mg/dL Estimated GFR (MDRD) 81 L (>89) Glucose 117 H (70-100) mg/dL Calcium 8.2 L (8.5-10.3) mg/dL Troponin I High Sens (2.3-19.7) ng/L B-Natriuretic Peptide 1850 H (5-100) pg/mL 07/12/22 07/12/22 07/12/22 Range/Units 17:32 15:55 11:40 WBC (4.8-10.8) x10^3/uL RBC (4.70-6.10) 10^6/uL Hgb (14.0-18.0) g/dL Hct (42.0-52.0) % MCV (80.0-94.0) fL MCH (27.0-31.0) pg MCHC (32.0-36.0) g/dL RDW (12.0-15.0) % Plt Count (130-450) 10^3/uL MPV (7.4-11.4) fL Neut # (Auto) (1.5-6.6) 10^3/uL Lymph # (Auto) (1.5-3.5) 10^3/uL Monona # (Auto) (0.0-1.0) 10^3/uL Eos # (Auto) (0.0-0.7) 10^3/uL Baso # (Auto) (0.0-0.1) 10^3/uL Absolute Nucleated RBC x10^3/uL Nucleated RBC % /100WBC Sodium 126 L (135-145) mmol/L Potassium 4.1 (3.5-5.0) mmol/L Chloride 95 L (101-111) mmol/L Carbon Dioxide 22 (21-32) mmol/L Anion Gap 9.0 (6-13) BUN 17 (6-20) mg/dL Creatinine 0.9 (0.6-1.2) mg/dL Estimated GFR (MDRD) 81 L (>89) Glucose 156 H (70-100) mg/dL Calcium 8.3 L (8.5-10.3) mg/dL Troponin I High Sens 107.9 H* 110.3 H* (2.3-19.7) ng/L B-Natriuretic Peptide (5-100) pg/mL - Diagnostic Imaging Diagnostic Imaging Results: positive: Final report reviewed (Reviewed Cxray with Dr. Ella Esposito. Images suggest that there is pulm edema which makes sense considering the patient is having worsening CHF.) ABX Reporting Has patient been on IV antibiotics over the past 48 hours?: No Assessment/Plan - Problem List (1) Acute systolic heart failure due to valvular disease Impression: Esther is in the room during this encounter. states that this new issue of CHF is a "huge drop" from how he was prior to admission as he is described as "an energizer bunny" Who's always up and about doing something active like walking his dog, mowing the lawn, etc. Examples of activities that are worsening: "eating is taxing" and "ADL's like getting out of bed are much more difficult". Patient himself states that his "breathing at night is harder than the night before" as he sometimes needs to breathe out of his mouth. Today is Thursday. According to previous note, cd technician is not available till Thursday. Plan: 1. Speak with cd technician and see if we can get Rehan's echo done sooner rather than later. 2. Referral for cardiology once CHF is stabilized and have him evaluated to see if he is a candidate for repair depending on severity of stenosis. 3. Continue Lasix 20mg IV push BID. (2) Hypotension Impression: Pt has cut his BP meds in half before admission and blood pressure was still increased. Last few blood pressures yesterday was upper 90's over 60, and today is 90/40. Orthostatics done and all three values are around the same with no increase/drop 90's to 50's. Plan: 1.No blood pressure medications at this time. Patient is also being currently diuresed so monitor vitals, especially BP for any further changes/drops. Qualifiers: Hypotension type: other hypotension type Qualified Code(s): I95.89 - Other hypotension (3) Elevated troponin level not due myocardial infarction Impression: LBBB on EKG, SOB and chest discomfort since January. Elevated, but nonchanging levels troponin (107, 110, 107) indicates that this is more likely than not a flat response from his aortic stenosis causing strain on his heart. Plan: 1. Continue daily aspirin 2. Continue statin 3. Consider serial monitoring of troponin. (4) BPH loc w urin obs/LUTS Impression: Increasing urinary frequency with diuresis to reduce strain on the heart. Plan: 1. Order proscar and flomax for BPH. (5) Hyponatremia Impression: Hyponatremia more likely than not d/t patients recent worsening of his CHF. Had received 3% hypertonic saline in the ER (50c's). Plan. Continue to follow hyponatremia with serial BMP's.
[2022-07-13] MEDS: TAMSULOSIN 0.4 MG CAPSULE PO SCH (13:35)
[2022-07-14] MEDS: ZOLPIDEM 5 MG TABLET PO PRN (00:17)
[2022-07-14] MEDS: SODIUM CHLORIDE FLUSH 0.9% 10 ML SYRINGE IVP SCH ×3 (00:17→22:46)
[2022-07-14 06:20] LABS: BASOPHILS # (AUTO) 0.1 10^3/uL (0.0-0.1); BASOPHILS % (AUTO) 0.8 %; EOSINOPHILS # (AUTO) 0.5 10^3/uL (0.0-0.7); EOSINOPHILS % (AUTO) 6.2 %; HGB - HEMOGLOBIN 11.6 g/dL (14.0-18.0); LYMPHOCYTES # (AUTO) 1.4 10^3/uL (1.5-3.5); LYMPHOCYTES % (AUTO) 19.2 %; MEAN CORPUSCULAR HEMOGLOBIN 32.5 pg (27.0-31.0); MEAN CORPUSCULAR HGB CONC 35.2 g/dL (32.0-36.0); MEAN CORPUSCULAR VOLUME 92.4 fL (80.0-94.0); MEAN PLATELET VOLUME 10.4 fL (7.4-11.4); MONOCYTES # (AUTO) 0.8 10^3/uL (0.0-1.0); MONOCYTES % (AUTO) 10.4 %; NEUTROPHILS # (AUTO) 4.6 10^3/uL (1.5-6.6); NEUTROPHILS % (AUTO) 63.3 %; PLT - PLATELET COUNT 171 10^3/uL (130-450); RED BLOOD COUNT 3.57 10^6/uL (4.70-6.10); RED CELL DISTRIBUTION WIDTH 12.5 % (12.0-15.0); WHITE BLOOD COUNT 7.3 x10^3/uL (4.8-10.8)
[2022-07-14 06:28] LABS: CALCIUM 8.4 mg/dL (8.5-10.3); POTASSIUM 3.9 mmol/L (3.5-5.0)
[2022-07-14] MEDS: SODIUM CHLORIDE FLUSH 0.9% 10 ML SYRINGE IVP PRN (06:58)
[2022-07-14] MEDS: FUROSEMIDE 20 MG/2 ML VIAL IVP SCH ×2 (06:58→14:00)
[2022-07-14] MEDS: MULTIVITAMIN TABLET PO SCH (08:05)
[2022-07-14] MEDS: TAMSULOSIN 0.4 MG CAPSULE PO SCH (08:05)
[2022-07-14] MEDS: ENOXAPARIN 40 MG/0.4 ML SYRINGE SUBQ SCH (08:05)
--- NOTE | 2022-07-14 10:48 | PROVIDER PROGRESS NOTE ---
Subjective - Prog Note Date Prog Note Date: 07/14/22 Prog Note Time: 10:48 - Subjective Pt reports feeling: No change Subjective: Pt states he is still coughing with phlegm which is worse at night. He noted that last night he had a piece coughed up that had a "tinge of red". Coughing has not stopped in any meaningful way, and he'll wake up sometimes at night d/t his coughing. Objective - Vital Signs/Intake & Output Vital Signs: Vital Signs x48h Temp Pulse Resp BP Pulse Ox O2 Flow Rate 07/14/22 08:04 20 95 2 07/14/22 07:59 36.7 C 96 20 110/56 L 2 07/14/22 07:26 2 07/14/22 06:03 36.4 C L 93 16 103/56 L 97 2 Intake & Output: Intake & Output 07/11/22 07/12/22 07/13/22 07/14/22 23:59 23:59 23:59 23:59 Intake Total 350 880 280 Output Total 226 1500 700 Balance 124 -685 -420 - Objective General Appearance: positive: No acute distress Eyes Bilateral: positive: Normal inspection Neck: positive: No JVD Respiratory: positive: Other (Positive egophony, L lung in all lobes, worse than R lung.) Cardiovascular: positive: Systolic murmur Peripheral Pulses: 2+ Radial (R), 2+ Radial (L) Abdomen: positive: Non-tender Skin: positive: Warm Extremities: positive: Other (Osteoarthritic DIP joints bilaterally) - Lab Results Fish Bones: 07/14/22 05:51 07/14/22 05:51 Other Labs: Lab Results x24hrs 07/14/22 07/14/22 07/14/22 Range/Units 05:51 05:51 05:51 WBC 7.3 (4.8-10.8) x10^3/uL RBC 3.57 L (4.70-6.10) 10^6/uL Hgb 11.6 L (14.0-18.0) g/dL Hct 33.0 L (42.0-52.0) % MCV 92.4 (80.0-94.0) fL MCH 32.5 H (27.0-31.0) pg MCHC 35.2 (32.0-36.0) g/dL RDW 12.5 (12.0-15.0) % Plt Count 171 (130-450) 10^3/uL MPV 10.4 (7.4-11.4) fL Neut # (Auto) 4.6 (1.5-6.6) 10^3/uL Lymph # (Auto) 1.4 L (1.5-3.5) 10^3/uL Gray # (Auto) 0.8 (0.0-1.0) 10^3/uL Eos # (Auto) 0.5 (0.0-0.7) 10^3/uL Baso # (Auto) 0.1 (0.0-0.1) 10^3/uL Absolute Nucleated RBC 0.00 x10^3/uL Nucleated RBC % 0.0 /100WBC Sodium 129 L (135-145) mmol/L Potassium 3.9 (3.5-5.0) mmol/L Chloride 95 L (101-111) mmol/L Carbon Dioxide 25 (21-32) mmol/L Anion Gap 9.0 (6-13) BUN 22 H (6-20) mg/dL Creatinine 1.0 (0.6-1.2) mg/dL Estimated GFR (MDRD) 71 L (>89) Glucose 126 H (70-100) mg/dL Calcium 8.4 L (8.5-10.3) mg/dL B-Natriuretic Peptide 2529 H (5-100) pg/mL Assessment/Plan - Problem List (1) Acute systolic heart failure due to valvular disease Impression: Continue plan Plan: 1. Positive egophony bilaterally, worse on L lung than right which correlates with the patients history of coughing more. 2. Speak with sewer and drain technician and see if we can get Rehan's echo done sooner rather than later. 3. Referral for cardiology once CHF is stabilized and have him evaluated to see if he is a candidate for repair depending on severity of stenosis. 4. Continue Lasix 20mg IV push BID. (2) Hypotension Impression: Pt has cut his BP meds in half before admission and blood pressure was still increased. Todays blood pressure is 103/56, and the last few blood pressures prior to today was upper 90's over 60. Orthostatics done today at the following: Supine: 100/55, 90 Sittin/52, 94 Standin/61, 101 Plan: 1.No blood pressure medications at this time. Not changes from last note. Patient is also being currently diuresed so monitor vitals, especially BP for any further changes/drops. Continue orthostatics. Qualifiers: Hypotension type: other hypotension type Qualified Code(s): I95.89 - Other hypotension (3) Elevated troponin level not due myocardial infarction Impression: LBBB on EKG, SOB and chest discomfort since January. Elevated, but nonchanging levels troponin (107, 110, 107) indicates that this is more likely than not a flat response from his aortic stenosis causing strain on his heart. Plan: 1. Continue daily aspirin 2. Continue statin 3. Consider serial monitoring of troponin. (4) BPH loc w urin obs/LUTS Impression: Increasing urinary frequency with diuresis to reduce strain on the heart. Plan: 1. Order proscar and flomax for BPH. (5) Hyponatremia Impression: Impression: Hyponatremia more likely than not d/t patients recent worsening of his CHF. Had received 3% hypertonic saline in the ER (50c's). Plan. Continue to follow hyponatremia with serial BMP's.
[2022-07-14] MEDS ORDERED: iohexoL-300 100 ML VIAL ONE (14:12)
[2022-07-14] MEDS ORDERED: iohexoL-300 100 ML VIAL IVP ONE (15:47)
--- NOTE | 2022-07-14 16:23 | CT Report ---
PROCEDURE: CHEST W INDICATIONS: hypoxia and hemoptysis CONTRAST:100ml Omnipaque 300 TECHNIQUE: After the administration of intravenous contrast, 1 mm axial images were acquired from the pulmonary apices through the posterior costophrenic angles. Axial 5 mm soft tissue kernel reconstructions were performed as well as 8 mm axial MIP and coronal and sagittal 5 mm reformations. For radiation dose reduction, the following was used: automated exposure control, adjustment of mA and/or kV according to patient size. COMPARISON: None. FINDINGS: Image quality: Excellent. Lungs and pleura: Moderate pleural effusions. Patchy, peripheral ground glass opacities with superimp osed smooth interstitial thickening. Calcified granuloma. Pleural calcifications. Mediastinum: Heart size is enlarged. No pericardial effusion. No mediastinal or hilar adenopathy b y size criteria. Thoracic aorta and central pulmonary arteries are normal in size. Esophagus is nor mal in caliber. No hiatal hernia. Calcified hilar nodes. No filling defect within the proximal pulm onary arteries. Bones and chest wall: No suspicious bony lesions. No vertebral body compression fractures. No axil ozyz or supraclavicular adenopathy by size criteria. The thyroid is normal in size and there are no incidental findings.. Abdomen: Calcified splenic granuloma. IMPRESSION: 1.Patchy, peripheral groundglass opacities. Findings are concerning for viral pneumonia. 2.Interstitial thickening and moderate pleural effusions, likely moderate superimposed pulmonary oren a. 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 CLINICAL RECOMMENDATION STATEMENTS: In patients <35 years with an ITN detected on CT, MRI, or extrathyroidal ultrasound, the Committee re commends further evaluation with dedicated thyroid ultrasound if the nodule is "e1 cm and has no susp icious imaging features, and if the patient has normal life expectancy. In patients "e35 years with an ITN detected on CT, MRI, or extrathyroidal ultrasound, the Committee r ecommends further evaluation with dedicated thyroid ultrasound if the nodule is "e1.5 cm and has no s uspicious imaging features, and if the patient has normal life expectancy. (ACR, 2014) Reviewed by: Last Schwab on 07/14/2022 4:22 PM PDT Approved by: Last Schwab on 07/14/2022 4:22 PM PDT Station ID: [id number]
[2022-07-15] MEDS: ZOLPIDEM 5 MG TABLET PO PRN ×2 (01:11→22:21)
[2022-07-15] MEDS: SODIUM CHLORIDE FLUSH 0.9% 10 ML SYRINGE IVP SCH ×3 (01:30→17:46)
[2022-07-15 06:25] LABS: BASOPHILS # (AUTO) 0.1 10^3/uL (0.0-0.1); EOSINOPHILS # (AUTO) 0.5 10^3/uL (0.0-0.7); EOSINOPHILS % (AUTO) 7.3 %; HCT - HEMATOCRIT 34.4 % (42.0-52.0); LYMPHOCYTES # (AUTO) 1.3 10^3/uL (1.5-3.5); LYMPHOCYTES % (AUTO) 17.7 %; MEAN CORPUSCULAR HEMOGLOBIN 32.4 pg (27.0-31.0); MEAN CORPUSCULAR HGB CONC 34.9 g/dL (32.0-36.0); MEAN PLATELET VOLUME 10.1 fL (7.4-11.4); MONOCYTES # (AUTO) 0.8 10^3/uL (0.0-1.0); MONOCYTES % (AUTO) 10.5 %; NEUTROPHILS # (AUTO) 4.5 10^3/uL (1.5-6.6); NEUTROPHILS % (AUTO) 63.2 %; PLT - PLATELET COUNT 195 10^3/uL (130-450); RED CELL DISTRIBUTION WIDTH 12.5 % (12.0-15.0); WHITE BLOOD COUNT 7.2 x10^3/uL (4.8-10.8)
[2022-07-15 06:36] LABS: CALCIUM 8.5 mg/dL (8.5-10.3); CREATININE 0.9 mg/dL (0.6-1.2)
[2022-07-15] MEDS: FUROSEMIDE 20 MG/2 ML VIAL IVP SCH ×2 (06:52→14:08)
[2022-07-15] MEDS: SODIUM CHLORIDE FLUSH 0.9% 10 ML SYRINGE IVP PRN (06:53)
[2022-07-15] MEDS: polyethylene glycoL 3350 17 GM PACKET PO SCH (08:22)
[2022-07-15] MEDS: ENOXAPARIN 40 MG/0.4 ML SYRINGE SUBQ SCH (08:22)
[2022-07-15] MEDS: AZITHROMYCIN INJ 500 MG in SODIUM CHLORIDE 0.9% 250 ML IV SCH (08:22)
[2022-07-15] MEDS: TAMSULOSIN 0.4 MG CAPSULE PO SCH (08:22)
[2022-07-15] MEDS: MULTIVITAMIN TABLET PO SCH (08:22)
[2022-07-15] MEDS ORDERED: ALBUTEROL NEB 2.5 MG/3 ML INH PRN (09:23)
[2022-07-15] MEDS ORDERED: ZINC OXIDE 20% OINT 30 GM TUBE TOP PRN (13:24)
--- NOTE | 2022-07-15 19:44 | PROVIDER PROGRESS NOTE ---
Assessment/Plan - Problem List (1) Acute systolic heart failure due to valvular disease Assessment/Plan: The provider before me assumed that this patient has systolic heart failure, but we did not have an Echo until today to confirm that. The last Echo done here was done 6 years ago (in 2016) and this showed a normal LVEF and mild . The patient states there has not been an Echo done anywhere since that time and all previous Echoes (in [place]) showed no CHF. Today the patient admitted that for about 6 days before this hospitalization, he was "drinking a lot of water" to "help bring up his low BP". The Echo done today 07/15 does show LV dilation and severe global LV hypokinesis with an EF of 10% Plan: Continue Lasix 20mg IV BID. We will start low-dose beta-karla We will start p.o. spironolactone Continue supplemental O2, target saturation is 92% or above Follow I's and O's and daily weights (2) Severe aortic stenosis He has a very soft and very late peaking systolic murmur which is consistent with severe or critical aortic stenosis, with the valve being nearly immobile, in a low-flow (low cardiac output) state. Today's Echo does show severe or critical aortic stenosis Plan: No afterload coil former meds are indicated with a fixed afterload from his severe and his low BP would not tolerate that He will need referral for Cardiology to see if he is a candidate for TAVR. He said he used to have a Pressure Washer when he lived in [place], but has not established with one since he moved here , which was in 2011 (3) Hypotension Impression: Pt had cut his BP meds in half before admission and blood pressure was still low. That is also a sign of a severely depressed cardiomyopathy. His blood pressure is running 90-110 syst. Plan: Now that we know his very poor LVEF, from Echo done today, will start very low- dose beta-blockers and spread them out, stagger them from his diuretics He needs to continue being diuresed ROBIN inhibitors are not indicated when there is severe , and also his blood pressure would not tolerate an ROBIN or ARB Continue to check orthostatics. Qualifiers: Hypotension type: other hypotension type Qualified Code(s): I95.89 - Other hypotension (4) Elevated troponin level not due myocardial infarction Impression: LBBB was seen on EKG, SOB and chest discomfort reported. He has elevated, but flat troponins (107, 110, 107) indicating that currently this troponin elevateion is likely from CHF, not an acute coronary syndrome. Plan: Continue daily aspirin Continue statin (5) Cough with sputum production Patient made sure to show me his yellow sputum with and or in center. Yesterday the Hospitalist wrote there is yellow phlegm with blood-tinge. Was started on IV azithromycin yesterday Plan: Will obtain sputum for culture Continue empiric antibiotic (6) BPH w urin obs/LUTS Impression: Increasing urinary frequency with diuresis Plan: Will stop Tamsolusin and restart his Proscar in a.m. and Cardura at night for his BPH. (7) Hyponatremia Impression: Resolved. Hyponatremia was hypervolemic secondary to patients recent CHF. Today the patient admitted that for about 6 days before this hospitalization he was "drinking a lot of water" to flush out the salt he was eating. He had received 3% hypertonic saline in the ER. Plan: Continue diuresis Cont to follow daily BMP. - Current Meds Current Meds: Current Medications Generic Name Dose Route Start Last Admin Trade Name Freq PRN Reason Stop Dose Admin Enoxaparin Sodium 40 mg 07/13/22 09:00 07/15/22 08:22 Enoxaparin 40 Mg/0.4 Ml Syringe SUBQ 40 mg DAILY BRAIN Administration Furosemide 20 mg 07/12/22 19:00 07/15/22 14:08 Furosemide 20 Mg/2 Ml Vial IVP 20 mg BIDDIURETIC BRAIN Administration Azithromycin 500 mg/ Sodium 250 mls @ 250 mls/hr 07/15/22 09:00 07/15/22 09:22 Chloride IV 07/18/22 08:59 Infused DAILY BRAIN Infusion Multi-Ingredient Ointment 1 applic 07/15/22 13:24 07/15/22 14:10 Zinc Oxide 20% Oint 30 Gm Tube TOP 1 applic PRN PRN Administration Skin Care Multivitamins 1 tab 07/13/22 08:00 07/15/22 08:22 Multivitamin Tablet PO 1 tab DAILYWM BRAIN Administration Polyethylene Glycol 17 gm 07/15/22 09:00 07/15/22 08:22 Polyethylene Glycol 3350 17 Gm Packet PO 17 gm DAILY BRAIN Administration Sodium Chloride 10 ml 07/12/22 12:27 07/15/22 06:53 Sodium Chloride Flush 0.9% 10 Ml Syringe IVP 10 ml PRN PRN Administration NEEDED PER PROVIDER ORDERS Sodium Chloride 10 ml 07/12/22 17:00 07/15/22 17:46 Sodium Chloride Flush 0.9% 10 Ml Syringe IVP 10 ml 0100,0900,1700 BRAIN Administration Zolpidem Tartrate 5 mg 07/12/22 13:35 07/15/22 01:11 Zolpidem 5 Mg Tablet PO 5 mg HS PRN Administration Insomnia - Lab Result Fish Bone Diagrams: 07/15/22 06:07 07/15/22 06:07 - Additional Planning My Orders: My Active Orders 07/15/22 Breakfast DIET [Low Sodium Diet] [DIET] 07/15/22 09:23 Albuterol 2.5 mg INH RTQ4H PRN 07/15/22 13:24 Zinc Oxide 20% Oint [Zinc Oxide] 1 applic TOP PRN PRN 07/15/22 17:41 CUL, RESPIRATORY [RM] Routine 07/15/22 21:00 Doxazosin [Cardura] 4 mg PO QPM 07/16/22 09:00 Finasteride [Proscar] 5 mg PO DAILY Subjective - Subjective Patient Reports: Shortness of Breath (He feels "20% better". He is still wearing O2 supplemental. He is still very tachypneic with any movement) Objective Vital Signs: Vital Signs - 24 hr 07/14/22 07/15/22 07/15/22 20:19 01:04 06:10 Temperature 36.6 C 36.5 C 37.0 C Heart Rate [ 100 99 95 Brachial] Respiratory 20 20 20 Rate Blood Pressure 101/55 L 105/60 111/57 L [Right Brachial artery] O2 Saturation 96 96 100 If not protocol 2 2 2 : Oxygen Flow, liters/minute 07/15/22 07/15/22 07/15/22 08:13 11:27 16:05 Temperature 36.6 C 36.5 C 36.5 C Heart Rate [ 92 92 89 Brachial] Respiratory 20 20 16 Rate Blood Pressure 99/63 94/54 L 101/55 L [Right Brachial artery] O2 Saturation 98 98 98 If not protocol 2 2 2 : Oxygen Flow, liters/minute 07/15/22 17:22 Temperature Heart Rate [ Brachial] Respiratory Rate Blood Pressure [Right Brachial artery] O2 Saturation If not protocol 2 : Oxygen Flow, liters/minute Oxygen O2 Source Nasal cannula I&O (Last 24 Hrs): Intake and Output Totals x24h 07/13/22 07/14/22 07/15/22 23:59 23:59 23:59 Intake Total 609 076 4223 Output Total 1500 1925 650 Balance -620 -1035 460 General: Alert, Oriented x3 HEENT: Mucous membr. moist/pink, Other (He is very close set eyes with ptosis, left greater than right. He is wearing O2 via nasal cannula) Neck: Supple, Other ((+) JVD at an 80 degree upright sitting position) Neuro: Alert, Non Focal Cardiovascular: Regular rate, Other (Very soft, late peaking systolic murmur, loudest at base) Respiratory: Rales (at both bases) Extremities: No clubbing, No edema - Results Results: Laboratory Results WBC 7.2 x10^3/uL (4.8-10.8) 07/15/22 06:07 RBC 3.70 10^6/uL (4.70-6.10) L 07/15/22 06:07 Hgb 12.0 g/dL (14.0-18.0) L 07/15/22 06:07 Hct 34.4 % (42.0-52.0) L 07/15/22 06:07 MCV 93.0 fL (80.0-94.0) 07/15/22 06:07 MCH 32.4 pg (27.0-31.0) H 07/15/22 06:07 MCHC 34.9 g/dL (32.0-36.0) 07/15/22 06:07 RDW 12.5 % (12.0-15.0) 07/15/22 06:07 Plt Count 195 10^3/uL (130-450) 07/15/22 06:07 MPV 10.1 fL (7.4-11.4) 07/15/22 06:07 Neut # (Auto) 4.5 10^3/uL (1.5-6.6) 07/15/22 06:07 Lymph # (Auto) 1.3 10^3/uL (1.5-3.5) L 07/15/22 06:07 Swisher # (Auto) 0.8 10^3/uL (0.0-1.0) 07/15/22 06:07 Eos # (Auto) 0.5 10^3/uL (0.0-0.7) 07/15/22 06:07 Baso # (Auto) 0.1 10^3/uL (0.0-0.1) 07/15/22 06:07 Absolute Nucleated RBC 0.00 x10^3/uL 07/15/22 06:07 Nucleated RBC % 0.0 /100WBC 07/15/22 06:07 Sodium 131 mmol/L (135-145) L 07/15/22 06:07 Potassium 4.0 mmol/L (3.5-5.0) 07/15/22 06:07 Chloride 92 mmol/L (101-111) L 07/15/22 06:07 Carbon Dioxide 26 mmol/L (21-32) 07/15/22 06:07 Anion Gap 13.0 (6-13) 07/15/22 06:07 BUN 24 mg/dL (6-20) H 07/15/22 06:07 Creatinine 0.9 mg/dL (0.6-1.2) 07/15/22 06:07 Estimated GFR (MDRD) 81 (>89) L 07/15/22 06:07 Glucose 132 mg/dL (70-100) H 07/15/22 06:07 Calcium 8.5 mg/dL (8.5-10.3) 07/15/22 06:07 Total Bilirubin 1.1 mg/dL (0.2-1.0) H 07/12/22 09:35 AST 33 IU/L (10-42) 07/12/22 09:35 ALT 19 IU/L (10-60) 07/12/22 09:35 Alkaline Phosphatase 57 IU/L (42-121) 07/12/22 09:35 Troponin I High Sens 107.9 ng/L (2.3-19.7) H* 07/12/22 17:32 B-Natriuretic Peptide 2627 pg/mL (5-100) H 07/15/22 06:02 Total Protein 6.8 g/dL (6.7-8.2) 07/12/22 09:35 Albumin 3.7 g/dL (3.2-5.5) 07/12/22 09:35 Globulin 3.1 g/dL (2.1-4.2) 07/12/22 09:35 Albumin/Globulin Ratio 1.2 (1.0-2.2) 07/12/22 09:35 Lipase 44 U/L (22-51) 07/12/22 09:35 Nasal Adenovirus (PCR) NOT DETECTED 07/12/22 09:35 Nasal B. parapertussis DNA (PCR) NOT DETECTED 07/12/22 09:35 Nasal Coronavir 229E PCR NOT DETECTED 07/12/22 09:35 Nasal Coronavir HKU1 PCR NOT DETECTED 07/12/22 09:35 Nasal Coronavir NL63 PCR NOT DETECTED 07/12/22 09:35 Nasal Coronavir OC43 PCR NOT DETECTED 07/12/22 09:35 Nasal Enterovir/Rhinovir PCR NOT DETECTED 07/12/22 09:35 Nasal Influenza B PCR NOT DETECTED 07/12/22 09:35 Nasal Influenza A PCR NOT DETECTED 07/12/22 09:35 Nasal Parainfluen 1 PCR NOT DETECTED 07/12/22 09:35 Nasal Parainfluen 2 PCR NOT DETECTED 07/12/22 09:35 Nasal Parainfluen 3 PCR NOT DETECTED 07/12/22 09:35 Nasal Parainfluen 4 PCR NOT DETECTED 07/12/22 09:35 Nasal RSV (PCR) NOT DETECTED 07/12/22 09:35 Nasal B.pertussis DNA PCR NOT DETECTED 07/12/22 09:35 Nasal C.pneumoniae (PCR) NOT DETECTED 07/12/22 09:35 You Human Metapneumo PCR NOT DETECTED 07/12/22 09:35 Nasal M.pneumoniae (PCR) NOT DETECTED 07/12/22 09:35 Nasal SARS-CoV-2 (PCR) NOT DETECTED 07/12/22 09:35
[2022-07-15] MEDS: DOXAZOSIN 4 MG TABLET PO SCH (22:21)
[2022-07-16] MEDS: SODIUM CHLORIDE FLUSH 0.9% 10 ML SYRINGE IVP SCH ×4 (00:08→23:59)
[2022-07-16] MEDS: FUROSEMIDE 20 MG/2 ML VIAL IVP SCH ×2 (05:29→13:55)
[2022-07-16 05:56] LABS: BASOPHILS # (AUTO) 0.1 10^3/uL (0.0-0.1); BASOPHILS % (AUTO) 0.8 %; EOSINOPHILS # (AUTO) 0.6 10^3/uL (0.0-0.7); EOSINOPHILS % (AUTO) 8.2 %; HCT - HEMATOCRIT 33.5 % (42.0-52.0); HGB - HEMOGLOBIN 11.5 g/dL (14.0-18.0); LYMPHOCYTES # (AUTO) 1.2 10^3/uL (1.5-3.5); LYMPHOCYTES % (AUTO) 17.6 %; MEAN CORPUSCULAR HGB CONC 34.3 g/dL (32.0-36.0); MEAN CORPUSCULAR VOLUME 93.3 fL (80.0-94.0); MEAN PLATELET VOLUME 10.6 fL (7.4-11.4); MONOCYTES # (AUTO) 0.7 10^3/uL (0.0-1.0); MONOCYTES % (AUTO) 9.6 %; NEUTROPHILS # (AUTO) 4.5 10^3/uL (1.5-6.6); NEUTROPHILS % (AUTO) 63.5 %; PLT - PLATELET COUNT 191 10^3/uL (130-450); RED BLOOD COUNT 3.59 10^6/uL (4.70-6.10); RED CELL DISTRIBUTION WIDTH 12.3 % (12.0-15.0); WHITE BLOOD COUNT 7.1 x10^3/uL (4.8-10.8)
[2022-07-16 06:03] LABS: CALCIUM 8.7 mg/dL (8.5-10.3); POTASSIUM 4.4 mmol/L (3.5-5.0)
[2022-07-16] MEDS: AZITHROMYCIN INJ 500 MG in SODIUM CHLORIDE 0.9% 250 ML IV SCH (08:53)
[2022-07-16] MEDS: ENOXAPARIN 40 MG/0.4 ML SYRINGE SUBQ SCH (08:53)
[2022-07-16] MEDS: MULTIVITAMIN TABLET PO SCH (08:56)
[2022-07-16] MEDS: polyethylene glycoL 3350 17 GM PACKET PO SCH (08:56)
[2022-07-16] MEDS: FINASTERIDE 5 MG TABLET PO SCH (08:57)
[2022-07-16] MEDS: SPIRONOLACTONE 25 MG TABLET PO SCH (11:32)
[2022-07-16] MEDS: SODIUM CHLORIDE FLUSH 0.9% 10 ML SYRINGE IVP PRN (13:57)
--- NOTE | 2022-07-16 19:12 | PROVIDER PROGRESS NOTE ---
Assessment/Plan - Problem List (1) Acute systolic heart failure due to valvular disease Assessment/Plan: The patient has been getting TA and orthopnea for several mos but he admitted that for about 6 days before this hospitalization, he was "drinking a lot of water" to "help bring up his low BP". The last Echo done here was done 6 years ago (in 2016) and this showed a normal LVEF and mild . The patient states there has not been an Echo done anywhere since that time and all previous Echoes (in [place]) showed no CHF. The provider before me assumed that this patient has systolic heart failure, but we did not have an Echo until 07/15 to confirm that he does indeed have systolic heart failure The Echo done 07/15 does show LV dilation and severe global LV hypokinesis with an EF of 10% Plan: Continue Lasix 20mg IV BID, as rales are still audible. Cont low-dose Toprol, will not chose Coreg because of its alpha-karla affect, which will add to his low BP We will start p.o. spironolactone today, stagger and take that at noon Continue supplemental O2, target saturation is 92% or above Follow I's and O's and daily weights (2) Severe aortic stenosis He has a very soft and very late peaking systolic murmur which is consistent with severe or critical aortic stenosis, with the valve being nearly immobile, in a low-flow (low cardiac output) state. 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 That is also a sign of a severely depressed cardiomyopathy. His blood pressure is running 90-110 syst. Plan: Now that we know his very poor LVEF, from Echo done 07/15, we will start very lo w-dose beta-blockers and spread them out, plus stagger them from his diuretics He needs to continue being diuresed ROBIN inhibitors are not indicated when there is severe , and also his blood pressure would not tolerate an ROBIN or ARB Continue to check orthostatics. Qualifiers: Hypotension type: other hypotension type Qualified Code(s): I95.89 - Other hypotension (4) Elevated troponin level not due myocardial infarction Impression: LBBB was seen on EKG, SOB and chest discomfort reported. He has elevated, but flat troponins (107, 110, 107) indicating that currently this troponin elevation is likely from CHF, not an acute coronary syndrome. Plan: Continue daily aspirin Continue statin (5) Cough with hemoptysis (R04.2) He notices his cough is much better since yesterday. He was started on IV azithromycin 2 days ago. This morning he complained of abdominal pain after receiving the Zithro dose iv. A sputum was sent for culture yesterday, results are still pending. Plan: Continue empiric Zithromax; he received 500 mg IV x2 and we will now change the high dose to 250 mg orally for 2 more dose (6) BPH w urin obs/LUTS Impression: Increasing urinary frequency with diuresis Plan: We restarted his Proscar in a.m. and Cardura at night for his BPH. (7) Hyponatremia Impression: Resolved. Hyponatremia was hypervolemic secondary to patients volume overload/CHF. The patient admitted to me on 07/15 that for about 6 days before this hospitalization he was "drinking a lot of water" to "raise his low BP". He had received 3% hypertonic saline in the ER. Plan: Continue diuresis with loop diuretic No saline as he is fluid overloaded Cont to follow daily BMP. - Current Meds Current Meds: Current Medications Generic Name Dose Route Start Last Admin Trade Name Freq PRN Reason Stop Dose Admin Doxazosin Mesylate 4 mg 07/15/22 21:00 07/15/22 22:21 Doxazosin 4 Mg Tablet PO 4 mg QPM BRAIN Administration Enoxaparin Sodium 40 mg 07/13/22 09:00 07/16/22 08:53 Enoxaparin 40 Mg/0.4 Ml Syringe SUBQ 40 mg DAILY BRAIN Administration Finasteride 5 mg 07/16/22 09:00 07/16/22 08:57 Finasteride 5 Mg Tablet PO 5 mg DAILY BRAIN Administration Furosemide 20 mg 07/12/22 19:00 07/16/22 13:55 Furosemide 20 Mg/2 Ml Vial IVP 20 mg BIDDIURETIC BRAIN Administration Multi-Ingredient Ointment 1 applic 07/15/22 13:24 07/15/22 14:10 Zinc Oxide 20% Oint 30 Gm Tube TOP 1 applic PRN PRN Administration Skin Care Multivitamins 1 tab 07/13/22 08:00 07/16/22 08:56 Multivitamin Tablet PO 1 tab DAILYWM BRAIN Administration Polyethylene Glycol 17 gm 07/15/22 09:00 07/16/22 08:56 Polyethylene Glycol 3350 17 Gm Packet PO 17 gm DAILY BRAIN Administration Sodium Chloride 10 ml 07/12/22 12:27 07/16/22 13:57 Sodium Chloride Flush 0.9% 10 Ml Syringe IVP 10 ml PRN PRN Administration NEEDED PER PROVIDER ORDERS Sodium Chloride 10 ml 07/12/22 17:00 07/16/22 08:57 Sodium Chloride Flush 0.9% 10 Ml Syringe IVP 10 ml 0100,0900,1700 BRAIN Administration Spironolactone 25 mg 07/16/22 12:00 07/16/22 11:32 Spironolactone 25 Mg Tablet PO 25 mg 1200 BRAIN Administration Zolpidem Tartrate 5 mg 07/12/22 13:35 07/15/22 22:21 Zolpidem 5 Mg Tablet PO 5 mg HS PRN Administration Insomnia - Lab Result Fish Bone Diagrams: 07/16/22 05:25 07/16/22 05:25 - Additional Planning My Orders: My Active Orders 07/15/22 21:00 Doxazosin [Cardura] 4 mg PO QPM 07/16/22 09:00 Finasteride [Proscar] 5 mg PO DAILY 07/16/22 12:00 Spironolactone [Aldactone] 25 mg PO 1200 07/16/22 21:00 Metoprolol Succinate [Toprol Xl] 6.25 mg PO BID 07/17/22 09:00 Azithromycin [Zithromax] 250 mg PO DAILY Subjective - Subjective Patient Reports: Feeling Better (Slightly improved cough he says since ye sterday.), Abdominal Pain (Had abdominal pain after getting the IV Zithromax) Objective Vital Signs: Vital Signs - 24 hr 07/15/22 07/16/22 07/16/22 20:17 00:09 08:19 Temperature 36.6 C 36.6 C Heart Rate [ 99 101 H Brachial] Respiratory 24 18 Rate Blood Pressure 101/58 L 104/71 [Right Brachial artery] O2 Saturation 99 96 If not protocol 2 2 2 : Oxygen Flow, liters/minute 07/16/22 07/16/22 08:26 16:08 Temperature 36.4 C L 36.5 C Heart Rate [ 86 86 Brachial] Respiratory 20 24 Rate Blood Pressure 93/54 L 97/56 L [Right Brachial artery] O2 Saturation 98 98 If not protocol 2 2 : Oxygen Flow, liters/minute Oxygen O2 Source Nasal cannula I&O (Last 24 Hrs): Intake and Output Totals x24h 07/14/22 07/15/22 07/16/22 23:59 23:59 23:59 Intake Total 890 1360 1490 Output Total 1925 1350 856 Balance -1035 10 634 General: Alert, Oriented x3 HEENT: Mucous membr. moist/pink Neck: Supple, Other ((+) JVD) Neuro: Alert, Non Focal Cardiovascular: Regular rate, Other (soft syst murmur, late peaking) Respiratory: Rales Abdomen: Normal bowel sounds, No tenderness Extremities: No clubbing, No edema, No tenderness/swelling - Results Results: Laboratory Results WBC 7.1 x10^3/uL (4.8-10.8) 07/16/22 05:25 RBC 3.59 10^6/uL (4.70-6.10) L 07/16/22 05:25 Hgb 11.5 g/dL (14.0-18.0) L 07/16/22 05:25 Hct 33.5 % (42.0-52.0) L 07/16/22 05:25 MCV 93.3 fL (80.0-94.0) 07/16/22 05:25 MCH 32.0 pg (27.0-31.0) H 07/16/22 05:25 MCHC 34.3 g/dL (32.0-36.0) 07/16/22 05:25 RDW 12.3 % (12.0-15.0) 07/16/22 05:25 Plt Count 191 10^3/uL (130-450) 07/16/22 05:25 MPV 10.6 fL (7.4-11.4) 07/16/22 05:25 Neut # (Auto) 4.5 10^3/uL (1.5-6.6) 07/16/22 05:25 Lymph # (Auto) 1.2 10^3/uL (1.5-3.5) L 07/16/22 05:25 [place] # (Auto) 0.7 10^3/uL (0.0-1.0) 07/16/22 05:25 Eos # (Auto) 0.6 10^3/uL (0.0-0.7) 07/16/22 05:25 Baso # (Auto) 0.1 10^3/uL (0.0-0.1) 07/16/22 05:25 Absolute Nucleated RBC 0.00 x10^3/uL 07/16/22 05:25 Nucleated RBC % 0.0 /100WBC 07/16/22 05:25 Sodium 131 mmol/L (135-145) L 07/16/22 05:25 Potassium 4.4 mmol/L (3.5-5.0) 07/16/22 05:25 Chloride 94 mmol/L (101-111) L 07/16/22 05:25 Carbon Dioxide 27 mmol/L (21-32) 07/16/22 05:25 Anion Gap 10.0 (6-13) 07/16/22 05:25 BUN 28 mg/dL (6-20) H 07/16/22 05:25 Creatinine 1.0 mg/dL (0.6-1.2) 07/16/22 05:25 Estimated GFR (MDRD) 71 (>89) L 07/16/22 05:25 Glucose 142 mg/dL (70-100) H 07/16/22 05:25 Calcium 8.7 mg/dL (8.5-10.3) 07/16/22 05:25 Total Bilirubin 1.1 mg/dL (0.2-1.0) H 07/12/22 09:35 AST 33 IU/L (10-42) 07/12/22 09:35 ALT 19 IU/L (10-60) 07/12/22 09:35 Alkaline Phosphatase 57 IU/L (42-121) 07/12/22 09:35 Troponin I High Sens 107.9 ng/L (2.3-19.7) H* 07/12/22 17:32 B-Natriuretic Peptide 3054 pg/mL (5-100) H 07/16/22 05:25 Total Protein 6.8 g/dL (6.7-8.2) 07/12/22 09:35 Albumin 3.7 g/dL (3.2-5.5) 07/12/22 09:35 Globulin 3.1 g/dL (2.1-4.2) 07/12/22 09:35 Albumin/Globulin Ratio 1.2 (1.0-2.2) 07/12/22 09:35 Lipase 44 U/L (22-51) 07/12/22 09:35 Nasal Adenovirus (PCR) NOT DETECTED 07/12/22 09:35 Nasal B. parapertussis DNA (PCR) NOT DETECTED 07/12/22 09:35 Nasal Coronavir 229E PCR NOT DETECTED 07/12/22 09:35 Nasal Coronavir HKU1 PCR NOT DETECTED 07/12/22 09:35 Nasal Coronavir NL63 PCR NOT DETECTED 07/12/22 09:35 Nasal Coronavir OC43 PCR NOT DETECTED 07/12/22 09:35 Nasal Enterovir/Rhinovir PCR NOT DETECTED 07/12/22 09:35 Nasal Influenza B PCR NOT DETECTED 07/12/22 09:35 Nasal Influenza A PCR NOT DETECTED 07/12/22 09:35 Nasal Parainfluen 1 PCR NOT DETECTED 07/12/22 09:35 Nasal Parainfluen 2 PCR NOT DETECTED 07/12/22 09:35 Nasal Parainfluen 3 PCR NOT DETECTED 07/12/22 09:35 Nasal Parainfluen 4 PCR NOT DETECTED 07/12/22 09:35 Nasal RSV (PCR) NOT DETECTED 07/12/22 09:35 Nasal B.pertussis DNA PCR NOT DETECTED 07/12/22 09:35 Nasal C.pneumoniae (PCR) NOT DETECTED 07/12/22 09:35 You Human Metapneumo PCR NOT DETECTED 07/12/22 09:35 Nasal M.pneumoniae (PCR) NOT DETECTED 07/12/22 09:35 Nasal SARS-CoV-2 (PCR) NOT DETECTED 07/12/22 09:35
[2022-07-16] MEDS ORDERED: METOPROLOL SUCCINATE 25 MG TABLET PO SCH (21:00)
[2022-07-16] MEDS: DOXAZOSIN 4 MG TABLET PO SCH (21:23)
[2022-07-16] MEDS: ZOLPIDEM 5 MG TABLET PO PRN (21:35)
[2022-07-17] MEDS: FUROSEMIDE 20 MG/2 ML VIAL IVP SCH ×2 (05:39→14:35)
[2022-07-17] MEDS: MULTIVITAMIN TABLET PO SCH (08:36)
[2022-07-17] MEDS: AZITHROMYCIN 250 MG TABLET PO SCH (08:36)
[2022-07-17] MEDS: ENOXAPARIN 40 MG/0.4 ML SYRINGE SUBQ SCH (08:36)
[2022-07-17] MEDS: FINASTERIDE 5 MG TABLET PO SCH (08:36)
[2022-07-17] MEDS: METOPROLOL SUCCINATE 25 MG TABLET PO SCH ×2 (08:36→21:39)
[2022-07-17] MEDS: SODIUM CHLORIDE FLUSH 0.9% 10 ML SYRINGE IVP SCH ×2 (08:37→17:46)
[2022-07-17] MEDS: polyethylene glycoL 3350 17 GM PACKET PO SCH (08:37)
[2022-07-17 08:48] LABS: CALCIUM 8.6 mg/dL (8.5-10.3); CREATININE 0.8 mg/dL (0.6-1.2); POTASSIUM 4.1 mmol/L (3.5-5.0)
[2022-07-17] MEDS ORDERED: MIDAZOLAM 2 MG/2 ML VIAL ONE (08:56)
[2022-07-17] MEDS: SPIRONOLACTONE 25 MG TABLET PO SCH (12:25)
[2022-07-17] MEDS: SODIUM CHLORIDE FLUSH 0.9% 10 ML SYRINGE IVP PRN (14:36)
--- NOTE | 2022-07-17 18:18 | PROVIDER PROGRESS NOTE ---
Assessment/Plan - Problem List (1) Acute systolic heart failure due to valvular disease Assessment/Plan: The patient has been getting TA and orthopnea for several mos but he admitted that for about 6 days before this hospitalization, he was "drinking a lot of water" to "help bring up his low BP". The last Echo done here was done 6 years ago (in 2016) and this showed a normal LVEF and mild . The patient states there has not been an Echo done anywhere since that time and all previous Echoes (in [place]) showed no CHF. The provider before me assumed that this patient has systolic heart failure, but we did not have an Echo until 07/15 to confirm that he does indeed have systolic heart failure The Echo done 07/15 does show LV dilation and severe global LV hypokinesis with an EF of 10% I reported this Echo result to the patient on 07/15 and 07/16. RN is telling me that he is not comprehending how serious this is. Today with his at the bedside I gave him a handout about aortic stenosis and prognosis when there is CHF and the overall severity of having an EF of 10%. 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 I left behind reading material. Plan: Continue Lasix 20mg IV BID, as fine rales are still audible. Will change to po Lasix tomorrow. Will increase Toprol, since orthostatic VS have been normal. I did not chose Coreg because of its alpha-karla affect, which will add to his low BP Cont p.o. spironolactone today, stagger and take that at noon Titrate down O2, with target saturation is 92% or above>> Today he was able to walk in the hallway breathing room air and only desaturated from 98% to 93% Follow I's and O's and daily weights Expect discharge soon, possibly tomorrow (2) Severe aortic stenosis He has a very soft and very late peaking systolic murmur which is consistent with severe or critical aortic stenosis, with the valve being nearly immobile, in a low-flow (low cardiac output) state. 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 I will try to give a warm handoff to his PCP, Adore Vallecillo NP (3) Hypotension Impression: Pt had cut his BP meds in half before admission and blood pressure was still low. That is also a sign of a severely depressed cardiomyopathy. His blood pressure is running 90-110 syst. Plan: Now that we know his very poor LVEF, from Echo done 07/15, we will start very low-dose beta-blockers and spread them out, plus stagger them from his diuretics He needs to continue being diuresed ROBIN inhibitors are not indicated when there is severe , and also his blood pressure would not tolerate an ROBIN or ARB Continue to check orthostatic VS>> these have been OK since his meds have been adjusted slowly while here. Qualifiers: Hypotension type: other hypotension type Qualified Code(s): I95.89 - Other hypotension (4) Elevated troponin level not due myocardial infarction Impression: LBBB was seen on EKG, SOB and chest discomfort reported. He has elevated, but flat troponins (107, 110, 107) indicating that currently this troponin elevation is likely from CHF, not an acute coronary syndrome. Plan: Continue daily aspirin Continue statin (5) Cough with hemoptysis (R04.2) He notices his cough iagain better since yesterday. He was started on IV azithromycin 3 days ago. A sputum was sent for culture yesterday, results are still pending. Plan: Continue empiric Zithromax; he received 500 mg IV x2 and 250 mg orally today , plan 1 more 250 mg dose (6) BPH w urin obs/LUTS Impression: Increasing urinary frequency with diuresis Plan: We restarted his Proscar in a.m. and Cardura at night for his BPH. (7) Hyponatremia Impression: Resolved. Hyponatremia was hypervolemic secondary to patients volume overload/CHF. The patient admitted to me on 07/15 that for about 6 days before this hospitalization he was "drinking a lot of water" to "raise his low BP". He had received 3% hypertonic saline in the ER. Plan: Continue diuresis with loop diuretic No saline as he is fluid overloaded Cont to follow daily BMP. - Current Meds Current Meds: Current Medications Generic Name Dose Route Start Last Admin Trade Name Freq PRN Reason Stop Dose Admin Azithromycin 250 mg 07/17/22 09:00 07/17/22 08:36 Azithromycin 250 Mg Tablet PO 07/19/22 00:01 250 mg DAILY BRAIN Administration Doxazosin Mesylate 4 mg 07/15/22 21:00 07/16/22 21:23 Doxazosin 4 Mg Tablet PO 4 mg QPM BRAIN Administration Enoxaparin Sodium 40 mg 07/13/22 09:00 07/17/22 08:36 Enoxaparin 40 Mg/0.4 Ml Syringe SUBQ 40 mg DAILY BRAIN Administration Finasteride 5 mg 07/16/22 09:00 07/17/22 08:36 Finasteride 5 Mg Tablet PO 5 mg DAILY BRAIN Administration Furosemide 20 mg 07/12/22 19:00 07/17/22 14:35 Furosemide 20 Mg/2 Ml Vial IVP 20 mg BIDDIURETIC BRAIN Administration Metoprolol Succinate 12.5 mg 07/17/22 09:00 07/17/22 08:36 Metoprolol Succinate 25 Mg Tablet PO 12.5 mg BID BRAIN Administration Multi-Ingredient Ointment 1 applic 07/15/22 13:24 07/15/22 14:10 Zinc Oxide 20% Oint 30 Gm Tube TOP 1 applic PRN PRN Administration Skin Care Multivitamins 1 tab 07/13/22 08:00 07/17/22 08:36 Multivitamin Tablet PO 1 tab DAILYWM BRAIN Administration Polyethylene Glycol 17 gm 07/15/22 09:00 07/17/22 08:37 Polyethylene Glycol 3350 17 Gm Packet PO 17 gm DAILY BRAIN Administration Sodium Chloride 10 ml 07/12/22 12:27 07/17/22 14:36 Sodium Chloride Flush 0.9% 10 Ml Syringe IVP 10 ml PRN PRN Administration NEEDED PER PROVIDER ORDERS Sodium Chloride 10 ml 07/12/22 17:00 07/17/22 17:46 Sodium Chloride Flush 0.9% 10 Ml Syringe IVP 10 ml 0100,0900,1700 BRAIN Administration Spironolactone 25 mg 07/16/22 12:00 07/17/22 12:25 Spironolactone 25 Mg Tablet PO 25 mg 1200 BRAIN Administration Zolpidem Tartrate 5 mg 07/12/22 13:35 07/16/22 21:35 Zolpidem 5 Mg Tablet PO 5 mg HS PRN Administration Insomnia - Lab Result Fish Bone Diagrams: 07/16/22 05:25 07/17/22 08:35 - Additional Planning My Orders: My Active Orders 07/17/22 Evaluate and Treat PT [PT] Routine 07/17/22 09:00 Azithromycin [Zithromax] 250 mg PO DAILY Metoprolol Succinate [Toprol Xl] 12.5 mg PO BID 07/17/22 10:54 Miscellaenous Nursing Order [RC] QSHIFT 07/17/22 10:55 Nutrition Consult [CONS] Routine 07/18/22 05:00 BMP - BASIC METABOLIC PANEL [CHEM] DAILYLAB BNP - B-NATRIURETIC PEPTIDE [IAI] DAILYLAB 07/19/22 05:00 BMP - BASIC METABOLIC PANEL [CHEM] DAILYLAB 07/20/22 05:00 BMP - BASIC METABOLIC PANEL [CHEM] DAILYLAB Subjective - Subjective Patient Reports: Feeling Better (Much less cough. Is able to ambulate breathing room air) Objective Vital Signs: Vital Signs - 24 hr 07/16/22 07/17/22 07/17/22 23:30 00:01 08:13 Temperature 36.5 C Heart Rate [ 97 Brachial] Respiratory 22 Rate Blood Pressure 104/67 [Right Brachial artery] O2 Saturation 97 If not protocol 2 2 2 : Oxygen Flow, liters/minute 07/17/22 07/17/22 07/17/22 09:11 11:30 14:37 Temperature 36.4 C L Heart Rate [ 87 Brachial] Respiratory 20 18 18 Rate Blood Pressure 99/54 L [Right Brachial artery] O2 Saturation 99 94 96 If not protocol 2 : Oxygen Flow, liters/minute 07/17/22 16:01 Temperature 36.4 C L Heart Rate [ 88 Brachial] Respiratory 22 Rate Blood Pressure 102/52 L [Right Brachial artery] O2 Saturation 97 If not protocol : Oxygen Flow, liters/minute Oxygen O2 Source Room air I&O (Last 24 Hrs): Intake and Output Totals x24h 07/15/22 07/16/22 07/17/22 23:59 23:59 23:59 Intake Total 1360 1640 720 Output Total 1350 1031 850 Balance 10 609 -130 General: Alert, Oriented x3 HEENT: Mucous membr. moist/pink Neck: Supple, Other ((+) JVD) Neuro: Alert, Non Focal Cardiovascular: Regular rate, Other (soft syst murmur) Respiratory: Rales (R base) Abdomen: Soft Extremities: No clubbing, No edema, No tenderness/swelling - Results Results: Laboratory Results WBC 7.1 x10^3/uL (4.8-10.8) 07/16/22 05:25 RBC 3.59 10^6/uL (4.70-6.10) L 07/16/22 05:25 Hgb 11.5 g/dL (14.0-18.0) L 07/16/22 05:25 Hct 33.5 % (42.0-52.0) L 07/16/22 05:25 MCV 93.3 fL (80.0-94.0) 07/16/22 05:25 MCH 32.0 pg (27.0-31.0) H 07/16/22 05:25 MCHC 34.3 g/dL (32.0-36.0) 07/16/22 05:25 RDW 12.3 % (12.0-15.0) 07/16/22 05:25 Plt Count 191 10^3/uL (130-450) 07/16/22 05:25 MPV 10.6 fL (7.4-11.4) 07/16/22 05:25 Neut # (Auto) 4.5 10^3/uL (1.5-6.6) 07/16/22 05:25 Lymph # (Auto) 1.2 10^3/uL (1.5-3.5) L 07/16/22 05:25 [place] # (Auto) 0.7 10^3/uL (0.0-1.0) 07/16/22 05:25 Eos # (Auto) 0.6 10^3/uL (0.0-0.7) 07/16/22 05:25 Baso # (Auto) 0.1 10^3/uL (0.0-0.1) 07/16/22 05:25 Absolute Nucleated RBC 0.00 x10^3/uL 07/16/22 05:25 Nucleated RBC % 0.0 /100WBC 07/16/22 05:25 Sodium 131 mmol/L (135-145) L 07/17/22 08:35 Potassium 4.1 mmol/L (3.5-5.0) 07/17/22 08:35 Chloride 92 mmol/L (101-111) L 07/17/22 08:35 Carbon Dioxide 29 mmol/L (21-32) 07/17/22 08:35 Anion Gap 10.0 (6-13) 07/17/22 08:35 BUN 27 mg/dL (6-20) H 07/17/22 08:35 Creatinine 0.8 mg/dL (0.6-1.2) 07/17/22 08:35 Estimated GFR (MDRD) 92 (>89) 07/17/22 08:35 Glucose 154 mg/dL (70-100) H 07/17/22 08:35 Calcium 8.6 mg/dL (8.5-10.3) 07/17/22 08:35 Total Bilirubin 1.1 mg/dL (0.2-1.0) H 07/12/22 09:35 AST 33 IU/L (10-42) 07/12/22 09:35 ALT 19 IU/L (10-60) 07/12/22 09:35 Alkaline Phosphatase 57 IU/L (42-121) 07/12/22 09:35 Troponin I High Sens 107.9 ng/L (2.3-19.7) H* 07/12/22 17:32 B-Natriuretic Peptide 3054 pg/mL (5-100) H 07/16/22 05:25 Total Protein 6.8 g/dL (6.7-8.2) 07/12/22 09:35 Albumin 3.7 g/dL (3.2-5.5) 07/12/22 09:35 Globulin 3.1 g/dL (2.1-4.2) 07/12/22 09:35 Albumin/Globulin Ratio 1.2 (1.0-2.2) 07/12/22 09:35 Lipase 44 U/L (22-51) 07/12/22 09:35 Nasal Adenovirus (PCR) NOT DETECTED 07/12/22 09:35 Nasal B. parapertussis DNA (PCR) NOT DETECTED 07/12/22 09:35 Nasal Coronavir 229E PCR NOT DETECTED 07/12/22 09:35 Nasal Coronavir HKU1 PCR NOT DETECTED 07/12/22 09:35 Nasal Coronavir NL63 PCR NOT DETECTED 07/12/22 09:35 Nasal Coronavir OC43 PCR NOT DETECTED 07/12/22 09:35 Nasal Enterovir/Rhinovir PCR NOT DETECTED 07/12/22 09:35 Nasal Influenza B PCR NOT DETECTED 07/12/22 09:35 Nasal Influenza A PCR NOT DETECTED 07/12/22 09:35 Nasal Parainfluen 1 PCR NOT DETECTED 07/12/22 09:35 Nasal Parainfluen 2 PCR NOT DETECTED 07/12/22 09:35 Nasal Parainfluen 3 PCR NOT DETECTED 07/12/22 09:35 Nasal Parainfluen 4 PCR NOT DETECTED 07/12/22 09:35 Nasal RSV (PCR) NOT DETECTED 07/12/22 09:35 Nasal B.pertussis DNA PCR NOT DETECTED 07/12/22 09:35 Nasal C.pneumoniae (PCR) NOT DETECTED 07/12/22 09:35 You Human Metapneumo PCR NOT DETECTED 07/12/22 09:35 Nasal M.pneumoniae (PCR) NOT DETECTED 07/12/22 09:35 Nasal SARS-CoV-2 (PCR) NOT DETECTED 07/12/22 09:35
[2022-07-17] MEDS: DOXAZOSIN 4 MG TABLET PO SCH (21:39)
[2022-07-17] MEDS: ZOLPIDEM 5 MG TABLET PO PRN (22:58)
[2022-07-18] MEDS: SODIUM CHLORIDE FLUSH 0.9% 10 ML SYRINGE IVP SCH ×2 (01:27→08:37)
[2022-07-18 05:44] LABS: CALCIUM 8.6 mg/dL (8.5-10.3); POTASSIUM 4.1 mmol/L (3.5-5.0)
[2022-07-18] MEDS ORDERED: FUROSEMIDE 40 MG TABLET PO SCH (08:00)
[2022-07-18] MEDS: polyethylene glycoL 3350 17 GM PACKET PO SCH (08:35)
[2022-07-18] MEDS: AZITHROMYCIN 250 MG TABLET PO SCH (08:36)
[2022-07-18] MEDS: FINASTERIDE 5 MG TABLET PO SCH (08:36)
[2022-07-18] MEDS: METOPROLOL SUCCINATE 25 MG TABLET PO SCH (08:36)
[2022-07-18] MEDS: MULTIVITAMIN TABLET PO SCH (08:36)
[2022-07-18] MEDS: ENOXAPARIN 40 MG/0.4 ML SYRINGE SUBQ SCH (08:37)
--- NOTE | 2022-07-18 08:54 | Discharge Plan ---
Discharge Plan Problem Reviewed?: Yes Disposition: Home, Self Care Condition: Fair Prescriptions: Spironolactone [Aldactone] 25 mg PO DAILY #30 tab Furosemide [Lasix] 40 mg PO DAILY #30 tab Metoprolol Succinate [Toprol Xl] 25 mg PO BID #60 tab Diet: Low Sodium Activity Restrictions: Light activity Shower Restrictions: No Driving Restrictions: No Instruction Topics: Heart Failure Tracking Weight, Heart Failure Diet Changes, Heart Failure Helpful Meds, Cardiomyopathy Dc, Heart Failure Congestive Ch Health Concerns: You needed hospitalization to manage fluid overload in your lungs, low blood pressure, and bronchitis. You finished a course of Zithromax antibiotic while here. Your cardiac medicines have been adjusted to treat the new findings of CHF (a weak heart muscle), which has been caused by your known aortic stenosis (heart valve that does not open well), which is now severe. You are being discharged home on new medications. Please follow this current medication list and take them as prescribed. Stop taking the Benazapril and the Norvasc. All new prescriptions were electronically sent to your [facility] pharmacy in [place]. Do not take in excess salt but also do not drink excessive water or other fluids. Use thirst as your guide of when to drink liquids. Do not overdo your activity until you have Cardiology clearance. Currently light activity is advised. I have contacted your primary care provider, Adore Vallecillo NP, and discussed your current medications and what we did while you were hospitalized, and that you need an [facility] referral to Cardiology. I mentioned that [place] is preferred, as you said. Please have a follow-up appointment with Adore Vallecillo NP, in the next 1-2 weeks. Plan of Treatment: As above. Care Goals: Improvement in symptoms and stabilization are the goals. Assessment: The patient understands and is agreeable with the plan. Additional Instructions or Follow Up instructions: If you have new or worsening symptoms, call your Primary Care provider or your Pattern Cleaner for advice, or come to the ER. No Smoking: If you smoke, Please STOP! Call for help. Follow-up with: Janina Vallecillo ARNP [Primary Care Provider] -
--- NOTE | 2022-07-18 10:49 | DISCHARGE SUMMARY ---
Discharge Summary Admit Date: 07/12/22 Discharge Date: 07/18/22 Discharging Provider: Chelsy Cooper MD Primary Care Provider: Adore Vallecillo NP Code Status: Attempt Resuscitation Condition at Discharge: Fair Discharge Disposition: 01 Home, Self Care - HPI History of Present Illness: This is an 82-year-old man who has a history of aortic stenosis diagnosed in 2006 by his Trimming Press Operator in [place], [place] (Dr. Brown) and then confirmed by 2017 Echo here, ordered by his primary care provider Guero Brownlee. He now presents with shortness of breath that has been gradually progressive and getting increasingly severe since January of 2022. He noticed that he could not make the 1/4 mile walk, with a hill, that he did every day with the dog, and iinability to completely mow his lawn. He was having to stop more and more. He has not had any chest pain or syncope. He was seen by his primary care provider, RUY Vallecillo, on July 10. He was c/o low blood pressure and shortness of breath on exertion. There was no ankle edema, but a 5 pound weight gain. This was accompanied by a mildly productive cough. He even used his dog's doxycycline 100 mg tablets for a couple of days. Blood pressure in the office was 100/60. On examination in the clinic he had a regular rate and rhythm and no murmur. His left lower lobe had coarse crackles. EKG had an abnormal left bundle branch block but of unknown age. Chest x-ray was ordered and he was treated as pneumonia with antibiotics in the form of Augmentin and albuterol. He is an ex-smoker of 1 pack/day for 20 years, but he quit in 1987. On his own he cut his BP meds in half since his BP continued to be low. In the ER today, he is saying that he just cannot breathe. It got to the point where he could not get out of bed yesterday and today because of TA. He also reports another 5 pound weight gain so an overall 10 pound weight gain. He denies chest pain, denies syncope or near syncope. Denies fever, chills. Denies sore throat, URI symptoms, or eustation tube dysfunction. He is getting orthopnea now. In the ER temperature is 37. Blood pressure is 97/57. Respiratory rate 25. He is saturating 96% on room air. He was alert and oriented. He had a harsh 3 out of 6 systolic murmur, mild rhonchi bilaterally and 1+ lower extremity edema. Currently, he is on Lasix 20 mg a day, albuterol metered-dose inhaler, amlodipine 5 mg daily, benazepril 10 mg daily, zolpidem 5 mg at night, f inasteride 5 mg daily, doxazosin 4 mg daily, fish oil tablets 2 tablets daily, blue-green allergy tablets 6 tablets a day, glucosamine 1 tablet twice a day, Maco red omega-3 Krill oil as directed, and Centrum Silver ultra men's once a day. Chest x-ray was done on July 10 and he then had pulmonary vascular congestion and, patchy and irregular opacities present in both lungs. Chest x-ray today odalis ws increased multifocal opacities throughout the bilateral lungs concerning for atypical infectious etiology versus pulmonary edema. His sodium is 125 today, where it was 137 in February 2022. Random glucose is 161. Creatinine is normal at 0.9. Total bili is 1.1. Troponin #1 was 107. 2 hours later troponin #2 was 110. BNP is 1922. After discussing the case with the emergency room provider, this patient most likely has symptomatic aortic stenosis. His hypotension is problematic and that leaves us little room to diurese him appropriately. He also has new hyponatremia at 125. This further restricts our ability to be aggressive with diuresis. As such he received 50 mL of 3% normal saline in anticipation of diuresis. We are placing him in Observation status, hoping that an overnight diuresis will stabilize him to be discharged for an outpatient work-up with a Trimming Press Operator. - HOSPITAL COURSE Hospital Course: (1) Acute systolic heart failure due to valvular disease The patient had been getting TA and orthopnea for several mos, and he admitted that for about 6 days before this hospitalization, he was "drinking a lot of water" to "help bring up his low BP". He was put on IV BID Lasix and needed max admiyted to Inpatient status. He slowly had adequate diuresis. The last Echo done here was in 2020 and that showed a normal LVEF and mild . There were no Trimming Press Operator visits or Echos since that time. The admitting provider assumed he now had systolic heart failure. When his Echo was done 07/15/22, it indeed showed systolic heart failure, with LV dilation and severe global LV hypokinesis, and an LVEF of 10-15%. We then started Toprol and Sironolactone, staggering his meds. He was seen by Auto Rental Clerk for CHF education. He was discharged on an entirely new list of cardiac meds. (2) Severe aortic stenosis He has a very soft and very late peaking systolic murmur, which is consistent with severe or critical aortic stenosis, with the aortic valve being nearly immobile, in a low-flow (low cardiac output) state. That is likely why the recent clinic note reported "no murmur". The Echo done here on 07/15/22 did confirm severe or critical aortic stenosis. No afterload data entry processor meds are indicated with the fixed afterload in severe . Also his low BP would not tolerate afterload reducing meds. His Norvasc and Benazapril were stopped. He was discharged on an entirely new list of cardiac meds. He will need referral to Cardiology [facility], to evaluate if he is still a candidate for TAVR, since with such a poor EF, he may not be a candidate. I spoke to his PCP, Adore Vallecillo NP on the day of discharge, and gave a "warm hand-off". (3) Hypotension Pt had cut his BP meds in half before this admission. The low blood pressure was also a sign of a severely depressed cardiomyopathy and severe aortic stenosis. After his Echo confirmed his very poor LVEF, we started very low-dose metoprolol Succinate, and spread that out plus staggered doses from his diuretics Lasix and Spiroinolactone, and then slowly increased the B-karla dose. At discharge his BP was 120/60. Coreg was not used, due to it's alpha karla component, which would add to lowering his BP, and ROBIN inhibitors are not indicated when there is severe , and would also lower BP. Staggered meds are advised. (4) Hyponatremia His Na was 125, and this was hypervolemic hyponatremia, consistent with volume overload. The patient admitted (on 07/15/22) that for about 6 days before this hospitalization he was "drinking a lot of water" to "raise his low BP". We used iv Lasix, used no more saline and this improved the serum Na to 131 slowly. On day of Dch, sodium was 128. (5) Cough with hemoptysis (R04.2) He reported blood specks in yellow sputum. He was started on empiric IV azithromycin, then po, and completed a 1500 mg course. A sputum was sent for culture and final result was not back, but was growing a GNR. (6) LBBB LBBB was seen on EKG, which is common with cardiomyopathy. (7) Elevated troponin level not due myocardial infarction He had elevated, but flat troponins (107, 110, 107) consistent with CHF. (8) BPH w urin obs/LUTS We kept him on his Proscar in a.m. and Cardura at night for his BPH, realizing that these also cause some lowering of his BP. - ALLERGIES Allergies/Adverse Reactions: Allergies Allergy/AdvReac Type Severity Reaction Status Date / Time codeine AdvReac Nausea Verified 07/15/22 12:53 - MEDICATIONS Home Medications: Ambulatory Orders Medication Instructions Recorded Confirmed Albuterol Sulf [Ventolin Hfa 2 puffs INH Q4HR PRN 07/12/22 07/12/22 Inhaler] Doxazosin [Cardura] 4 mg PO QPM 07/12/22 07/12/22 Finasteride [Proscar] 5 mg PO DAILY 07/12/22 07/12/22 Multivit-Min/FA/Lycopen/Lutein 1 each PO DAILY 07/12/22 07/12/22 [Centravites 50 Plus Tablet] Zolpidem [Ambien] 5 mg PO HS PRN 07/12/22 07/12/22 Furosemide [Lasix] 40 mg PO DAILY #30 tab 07/18/22 Metoprolol Succinate [Toprol Xl] 25 mg PO BID #60 tab 07/18/22 Spironolactone [Aldactone] 25 mg PO DAILY #30 tab 07/18/22 - PHYSICAL EXAM AT DISCHARGE General Appearance: positive: No acute distress, Alert Eyes Bilateral: positive: Other (Parasitized with bilateral ptosis (?chronic)) ENT: positive: ENT inspection nml, No signs of dehydration Neck: positive: Nml inspection, Other ((+) JVD with large v wave.) Respiratory: positive: No respiratory distress, Rales (Fine rales R base) Cardiovascular: positive: Regular rate & rhythm, Other (Very soft heart sounds. He has a harsh, late peaking systolic murmur heard best at the base) Abdomen: positive: Non-tender, No distention Skin: positive: Warm, Dry Extremities: positive: Non-tender, No pedal edema Neurologic/Psychiatric: positive: Oriented x3, Motor nml - LABS Result Diagrams: 07/16/22 05:25 07/18/22 05:13 - DIAGNOSTIC IMAGING Diagnostic Imaging Results: Final report reviewed - FOLLOW UP Follow Up: See PCP in the next 5 to 10 days for hospital follow-up visit. Patient needs an [facility] referral to Cardiology. - TIME SPENT Time Spent in Discharge (Minutes): 50
[2022-07-18 11:44] VITALS: BP 97/57
== END 2022-07-18 11:53 | disposition home or self-care (01) | DRG 291 ==
LOC: ED 09:08 → UNDOADMOB 12:27 → MS2 12:27 → OBSVTOIN 12:58 → INTOOBSV 12:58 → OBSVTOIN 07-13 12:58 → MS2 07-13 12:58 → UNDODISIN 07-18 11:53
PROVIDERS: ADMIT Specialist; ATTEND Internal Medicine
DX: I11.0 Hypertensive heart disease with heart failure (principal); I50.21 Acute systolic (congestive) heart failure; J18.9 Pneumonia, unspecified organism; E87.1 Hypo-osmolality and hyponatremia; I24.8 Other forms of acute ischemic heart disease; D64.9 Anemia, unspecified; I44.0 Atrioventricular block, first degree; Z20.822 Contact with and (suspected) exposure to COVID-19; R04.2 Hemoptysis; I35.0 Nonrheumatic aortic (valve) stenosis; I95.9 Hypotension, unspecified; I44.7 Left bundle-branch block, unspecified; N40.1 Benign prostatic hyperplasia with lower urinary tract symptoms; R35.1 Nocturia; Z87.891 Personal history of nicotine dependence; G47.00 Insomnia, unspecified; G89.29 Other chronic pain; M54.9 Dorsalgia, unspecified; R63.5 Abnormal weight gain; Z68.22 Body mass index [BMI] 22.0-22.9, adult; R09.02 Hypoxemia; E86.1 Hypovolemia; J40 Bronchitis, not specified as acute or chronic
CPT/HCPCS: 36415; 71045; 71260; 80048; 80053; 83690; 83735; 83880; 84484; 85025; 87070; 87077; 87181; 87205; 87633; 93005; 93306; 94761; 96372; 96374; 96376; 97161; 99285; A9270; G0378; J1650; Q9967

== ENCOUNTER 2023-03-10 07:03 | Outpatient (CLI) | payer MEDICARE, OTHER ==
[2023-03-10 14:46] LABS: BASOPHILS # (AUTO) 0.1 10^3/uL (0.0-0.1); BASOPHILS % (AUTO) 1.1 %; EOSINOPHILS # (AUTO) 0.4 10^3/uL (0.0-0.7); EOSINOPHILS % (AUTO) 7.6 %; HCT - HEMATOCRIT 42.4 % (42.0-52.0); HGB - HEMOGLOBIN 13.6 g/dL (14.0-18.0); LYMPHOCYTES # (AUTO) 1.8 10^3/uL (1.5-3.5); LYMPHOCYTES % (AUTO) 33.6 %; MEAN CORPUSCULAR HEMOGLOBIN 29.8 pg (27.0-31.0); MEAN CORPUSCULAR HGB CONC 32.1 g/dL (32.0-36.0); MEAN CORPUSCULAR VOLUME 92.8 fL (80.0-94.0); MEAN PLATELET VOLUME 10.7 fL (7.4-11.4); MONOCYTES # (AUTO) 0.6 10^3/uL (0.0-1.0); MONOCYTES % (AUTO) 12.1 %; NEUTROPHILS # (AUTO) 2.4 10^3/uL (1.5-6.6); NEUTROPHILS % (AUTO) 45.4 %; PLT - PLATELET COUNT 172 10^3/uL (130-450); RED BLOOD COUNT 4.57 10^6/uL (4.70-6.10); RED CELL DISTRIBUTION WIDTH 15.7 % (12.0-15.0); WHITE BLOOD COUNT 5.3 x10^3/uL (4.8-10.8)
[2023-03-10 15:59] LABS: ALBUMIN 4.1 g/dL (3.2-5.5); ALBUMIN/GLOBULIN RATIO 1.4 (1.0-2.2); ALKALINE PHOSPHATASE 63 IU/L (42-121); ALT ALANINE AMINOTRANSFERASE 23 IU/L (10-60); AST ASPARTATE AMINOTRANSFERASE 36 IU/L (10-42); BILIRUBIN,TOTAL 0.5 mg/dL (0.2-1.0); BUN - BLOOD UREA NITROGEN 23 mg/dL (6-20); CALCIUM 9.1 mg/dL (8.5-10.3); CARBON DIOXIDE - CO2 32 mmol/L (21-32); CHLORIDE 102 mmol/L (101-111); CHOL/HDL RATIO 2.3 (<5.0); CHOLESTEROL 158 mg/dL; GFR - MDRD 71 (>89); GLUCOSE 95 mg/dL (74-104); HDL CHOLESTEROL 70 mg/dL; LDL CHOLESTEROL,CALCULATED 79 mg/dL; LDL/HDL RATIO 1.1 (<3.6); POTASSIUM 4.1 mmol/L (3.5-4.5); SODIUM 138 mmol/L (135-145); TRIGLYCERIDES 47 mg/dL (48-352); VLDL CHOLESTEROL 9 mg/dL
== END 2023-03-10 07:04 | disposition home or self-care (01) ==
LOC: LAB.S 07:03
PROVIDERS: ATTEND Registered Nurse
DX: I10 Essential (primary) hypertension (principal); E78.5 Hyperlipidemia, unspecified
CPT/HCPCS: 36415; 80053; 80061; 83721; 85025